=== PATIENT | female | born 1965 | race Caucasian/White ===

== ENCOUNTER → 2016-05-30 | Outpatient (CLI) | payer BC ==
--- NOTE | 2016-05-30 08:56 | XR ---
EXAMINATION TYPE: XR abdomen 1V DATE OF EXAM: 05/30/2016 7:53 AM COMPARISON: 06/14/2013 HISTORY: Follow-up kidney stones TECHNIQUE: Single supine KUB image of the abdomen is obtained. FINDINGS: Persistent calcification in the right hemipelvis measuring 3 mm in diameter. Remaining pelvic calcifi cations are stable from previous exam. Bowel gas pattern nonspecific with no obstruction. Previous surgery in right upper quadrant noted. IMPRESSION: 1. Stable suspected distal right ureteral calculus relative to the outside CT scan of 05/24/2016..
== END | disposition home or self-care (01) ==
LOC: RADXRMAIN 07:30
PROVIDERS: ATTEND Urology
DX: N20.0 Calculus of kidney (principal)
CPT/HCPCS: 74000

== ENCOUNTER → 2016-06-29 | Outpatient (CLI) | payer BC ==
--- NOTE | 2016-06-30 09:51 | XR ---
EXAMINATION TYPE: XR KUB DATE OF EXAM: 06/29/2016 4:22 PM COMPARISON: 05/30/2016 HISTORY: Follow-up kidney stone FINDINGS: The osseous structures are intact. The bowel gas pattern is nonspecific. Overlying bowel content obs cures the renal outline. No obvious renal stones. Previous gallbladder surgery noted. Bone island ove rlying the left femoral neck. Pelvis: Within the pelvis there are multiple nonspecific calcifications. The oval calcification previously rao spected to be ureteral calculus is not seen. There is a larger 6 mm calculus which is somewhat irregu lar in shape which is nonspecific. IMPRESSION: 1. Nonspecific abdomen.
== END | disposition home or self-care (01) ==
LOC: RADXRMAIN 16:05
PROVIDERS: ATTEND Urology
DX: N20.1 Calculus of ureter (principal)
CPT/HCPCS: 74000

== ENCOUNTER → 2016-10-06 | Outpatient (CLI) | payer OTHER ==
--- NOTE | 2016-10-10 07:41 | MM ---
Reason for exam: screening (asymptomatic). Last mammogram was performed 2 years and 1 month ago. History: Benign US left guided VAD of the left breast, August 02, 2010. Physical Findings: A clinical breast exam by your physician is recommended on an annual basis and results should be correlated with mammographic findings. MG Screening Mammo w CAD Bilateral CC and MLO view(s) were taken. Prior study comparison: August 27, 2014, bilateral MG screening mammo w CAD. August 22, 2013, bilateral digital screening mammo w/CAD. August 21, 2012, bilateral digital screening mammo w/CAD. The breast tissue is heterogeneously dense. This may lower the sensitivity of mammography. Previous mammotome biopsy within the left breast. No significant changes when compared with prior studies. ASSESSMENT: Negative, BI-RAD 1 RECOMMENDATION: Routine screening mammogram of both breasts in 1 year.
== END | disposition home or self-care (01) ==
LOC: RADMAMWWP 15:55
PROVIDERS: ATTEND Family Medicine
DX: Z12.31 Encounter for screening mammogram for malignant neoplasm of breast (principal)
CPT/HCPCS: 36415; 80048; 80061

== ENCOUNTER → 2016-10-06 | Outpatient (CLI) | payer OTHER ==
[2016-10-06 13:21] LABS: Anion Gap 11 mmol/L; Blood Urea Nitrogen 15 mg/dL (7-17); Calcium 9.2 mg/dL (8.4-10.2); Carbon Dioxide 27 mmol/L (22-30); Chloride 106 mmol/L (98-107); Cholesterol 225 mg/dL (<200); Glucose 94 mg/dL (74-99); HDL Cholesterol 46 mg/dL (40-60); Non-African American GFR(MDRD) >60 (>60 ml/min/1.73 sqM); Potassium 3.7 mmol/L (3.5-5.1); Sodium 144 mmol/L (137-145); Triglycerides 156 mg/dL (<150)
== END | disposition home or self-care (01) ==
LOC: LABWHC1 11:56
PROVIDERS: ATTEND Family Medicine
DX: Z00.00 Encounter for general adult medical examination without abnormal findings (principal); I10 Essential (primary) hypertension
CPT/HCPCS: 36415; 80048; 80061

== ENCOUNTER → 2016-10-18 | Outpatient (CLI) | payer OTHER | END | disposition home or self-care (01) | LOC: LABWHC1 07:51 | PROVIDERS: ATTEND Urology | DX: Z53.9 Procedure and treatment not carried out, unspecified reason (principal) ==

== ENCOUNTER → 2016-11-13 | Outpatient (CLI) | payer OTHER | END | disposition home or self-care (01) | LOC: LABWHC1 10:33 | PROVIDERS: ATTEND Physician Assistant | DX: N20.0 Calculus of kidney (principal) | CPT/HCPCS: 36415; 83970 ==

== ENCOUNTER → 2016-11-13 | Outpatient (CLI) | payer OTHER ==
--- NOTE | 2016-11-13 15:32 | XR ---
EXAMINATION TYPE: XR abdomen 1V DATE OF EXAM ORDERED: 11/13/2016 HISTORY: N20.0 renal calculus. COMPARISON: Previous study dated 06/29/2016. FINDINGS: There has been a previous cholecystectomy. There is a moderate stool load. There are stable phleboliths within the pelvis. The 6 mm irregular calcification noted previously on the right is no longer evident. No definite calcifications are seen overlying the kidneys. IMPRESSION: 1. NO DEFINITE RENAL CALCULI. 2. MODERATE STOOL LOAD.
== END | disposition home or self-care (01) ==
LOC: RADXRMAIN 09:03
PROVIDERS: ATTEND Urology
DX: N20.0 Calculus of kidney (principal)
CPT/HCPCS: 36415; 74000; 83970

== ENCOUNTER → 2016-11-20 | Outpatient (CLI) | payer OTHER ==
[2016-11-20 07:54] LABS: Basophils % (A) 1 %; CH 31.5; CHCM 34.3; Eosinophils # (A) 0.1 k/uL (0-0.7); Eosinophils % (A) 1 %; HCT 41.4 % (34.0-46.0); HDW 2.63; HGB 14.1 gm/dL (11.4-16.0); Luc # (Auto) 0.15; Luc % (Auto) 2; Lymphocytes # (A) 1.4 k/uL (1.0-4.8); Lymphocytes % (A) 22 %; MCH 31.3 pg (25.0-35.0); Mean Platelet Volume 6.6; Monocytes # (A) 0.4 k/uL (0-1.0); Monocytes % (A) 7 %; Neutrophils # (A) 4.3 k/uL (1.3-7.7); Neutrophils % (A) 68 %; RDW 12.8 % (11.5-15.5); WBC 6.4 k/uL (3.8-10.6); WBC (Perox) 6.44
[2016-11-20 08:26] LABS: Anion Gap 11 mmol/L; Blood Urea Nitrogen 20 mg/dL (7-17); Calcium 8.9 mg/dL (8.4-10.2); Carbon Dioxide 23 mmol/L (22-30); Chloride 109 mmol/L (98-107); Glucose 108 mg/dL (74-99); Non-African American GFR(MDRD) >60 (>60 ml/min/1.73 sqM); Potassium 4.6 mmol/L (3.5-5.1); Sodium 143 mmol/L (137-145)
== END | disposition home or self-care (01) ==
LOC: LABWHC1 07:20
PROVIDERS: ATTEND Physician Assistant
DX: N20.0 Calculus of kidney (principal)
CPT/HCPCS: 36415; 80048; 85025

== ENCOUNTER 2018-07-10 06:42 | Emergency (ER) | payer BC, OTHER ==
[2018-07-10 06:49] VITALS: RESP 18; TEMP 98.1
[2018-07-10] MEDS ORDERED: METOCLOPRAMIDE 5 MG/ML 2 ML VIAL IVP STA (07:25)
[2018-07-10] MEDS ORDERED: SODIUM CHLORIDE 0.9% 1,000 ML IV STA (07:25)
[2018-07-10] MEDS ORDERED: SODIUM CHLORIDE 0.9% 500 ML 500 ML IV STA (07:25)
[2018-07-10] MEDS ORDERED: KETOROLAC 30 MG/ML 1 ML VIAL IVP STA (07:25)
--- NOTE | 2018-07-10 07:30 | ED ---
General Adult HPI - General Chief complaint: Abdominal Pain Stated complaint: Flank pain Time Seen by Provider: 07/10/18 07:07 Source: patient, RN notes reviewed Mode of arrival: ambulatory Limitations: no limitations - History of Present Illness Initial comments: Patient is a pleasant 32-year-old female presenting to the emergency Department with complaints of right flank pain. Onset of symptoms was a couple of days ago. Symptoms have been waxing and waning. Symptoms worsened last night and patient got some improvement with [place]. Discomfort is right posterior flank. Symptoms are similar to previous kidney stones. Patient does have nausea without vomiting. Patient has noticed some hematuria. No dysuria. No constipation or diarrhea. No fevers. - Related Data Home Medications Medication Instructions Recorded Confirmed Carvedilol [Coreg] 25 mg PO BID 07/10/18 07/10/18 Tetracycline 250 Mg 250 mg PO DAILY 07/10/18 07/10/18 Venlafaxine HCl ER [Effexor Xr] 150 mg PO DAILY 07/10/18 07/10/18 Previous Rx's Medication Instructions Recorded HYDROcodone/APAP 5-325MG [[place] 1 tab PO Q4HR PRN #20 tab 05/24/16 5-325] Ketorolac [Toradol] 10 mg PO Q6HR PRN #15 tab 07/10/18 Metoclopramide HCl [Reglan] 10 mg PO Q6HR PRN #15 tablet 07/10/18 Tamsulosin [Flomax] 0.4 mg PO DAILY #14 cap 07/10/18 Allergies Allergy/AdvReac Type Severity Reaction Status Date / Time Sulfa (Sulfonamide Allergy Rash/Hives Verified 07/10/18 07:27 Antibiotics) Review of Systems ROS Statement: Those systems with pertinent positive or pertinent negative responses have been documented in the HPI. ROS Other: All systems not noted in ROS Statement are negative. Constitutional: Denies: fever, chills Eyes: Denies: eye pain ENT: Denies: ear pain Respiratory: Denies: cough Cardiovascular: Denies: chest pain Endocrine: Denies: fatigue Gastrointestinal: Reports: as per HPI, abdominal pain, nausea. Denies: vomiting , diarrhea, constipation Genitourinary: Reports: hematuria. Denies: dysuria Musculoskeletal: Reports: as per HPI Skin: Denies: rash Neurological: Denies: weakness Past Medical History Past Medical History: Hypertension Additional Past Medical History / Comment(s): kidney stones, History of Any Multi-Drug Resistant Organisms: None Reported Past Surgical History: Back Surgery, Section, Cholecystectomy, Tubal Ligation Past Anesthesia/Blood Transfusion Reactions: Postoperative Nausea & Vomiting ( PONV) Past Psychological History: No Psychological Hx Reported Smoking Status: Never smoker Past Alcohol Use History: Occasional Past Drug Use History: None Reported - Past Family History Father Family Medical History: Dementia, Hypertension General Exam Limitations: no limitations General appearance: alert, in no apparent distress Head exam: Present: atraumatic Eye exam: Present: normal appearance, PERRL ENT exam: Present: normal oropharynx Neck exam: Present: normal inspection Respiratory exam: Present: normal lung sounds bilaterally Cardiovascular Exam: Present: regular rate, normal rhythm Expanded Peripheral pulses: 2+: Dorsalis Pedis (R), Dorsalis Pedis (L) GI/Abdominal exam: Present: soft. Absent: distended, tenderness Extremities exam: Present: normal inspection Back exam: Present: normal inspection. Absent: tenderness, CVA tenderness (R) Neurological exam: Present: alert Psychiatric exam: Present: normal affect, normal mood Skin exam: Present: normal color Course Vital Signs 07/10/18 06:46 Temperature 98.1 F Pulse Rate 75 Respiratory 18 Rate Blood Pressure 150/97 O2 Sat by Pulse 95 Oximetry Medical Decision Making - Medical Decision Making Patient reevaluated and resting comfortably in bed. Patient states discomfort is tolerable at this time. Patient and family updated on results. Patient updated on need for follow-up with urology within the week. Harika was contacted from Dr. Black's office will contact the patient for appointment. - Lab Data Result diagrams: 07/10/18 07:28 07/10/18 07:28 Lab Results 07/10/18 07/10/18 07/10/18 Range/Units 07:28 07:28 07:28 WBC 8.4 (3.8-10.6) k/uL RBC 4.68 (3.80-5.40) m/uL Hgb 13.8 (11.4-16.0) gm/dL Hct 40.8 (34.0-46.0) % MCV 87.2 (80.0-100.0) fL MCH 29.5 (25.0-35.0) pg MCHC 33.8 (31.0-37.0) g/dL RDW 13.2 (11.5-15.5) % Plt Count 314 (150-450) k/uL Neutrophils % 79 % Lymphocytes % 13 % Monocytes % 5 % Eosinophils % 1 % Basophils % 0 % Neutrophils # 6.6 (1.3-7.7) k/uL Lymphocytes # 1.1 (1.0-4.8) k/uL Monocytes # 0.4 (0-1.0) k/uL Eosinophils # 0.1 (0-0.7) k/uL Basophils # 0.0 (0-0.2) k/uL Sodium 141 (137-145) mmol/L Potassium 4.1 (3.5-5.1) mmol/L Chloride 106 (98-107) mmol/L Carbon Dioxide 24 (22-30) mmol/L Anion Gap 11 mmol/L BUN 32 H (7-17) mg/dL Creatinine 1.55 H (0.52-1.04) mg/dL Est GFR (CKD-EPI)AfAm 44 (>60 ml/min/1.73 sqM) Est GFR (CKD-EPI)NonAf 39 (>60 ml/min/1.73 sqM) Glucose 133 H (74-99) mg/dL Calcium 10.0 (8.4-10.2) mg/dL Total Bilirubin 0.7 (0.2-1.3) mg/dL AST 25 (14-36) U/L ALT 33 (9-52) U/L Alkaline Phosphatase 92 (38-126) U/L Total Protein 7.7 (6.3-8.2) g/dL Albumin 4.4 (3.5-5.0) g/dL Amylase 141 H (30-110) U/L Lipase 198 (23-300) U/L Urine Color Light Red Urine Appearance Cloudy H (Clear) Urine pH 6.0 (5.0-8.0) Ur Specific [place] 1.017 (1.001-1.035) Urine Protein 1+ H (Negative) Urine Glucose (UA) Negative (Negative) Urine Ketones Negative (Negative) Urine Blood Large H (Negative) Urine Nitrite Negative (Negative) Urine Bilirubin Negative (Negative) Urine Urobilinogen <2.0 (<2.0) mg/dL Ur Leukocyte Esterase Small H (Negative) Urine RBC >182 H (0-5) /hpf Urine WBC 11 H (0-5) /hpf Ur Squamous Epith Cells 1 (0-4) /hpf Calcium Oxalate Crystal Many H (None) /hpf Urine Mucus Rare H (None) /hpf - Radiology Data Radiology results: image reviewed (KUB shows 8 mm calculi right UPJ) Disposition Clinical Impression: Ureterolithiasis Disposition: HOME SELF-CARE Condition: Stable Instructions (If sedation given, give patient instructions): Kidney Stones (ED) Additional Instructions: Please follow-up with urology within the week, preferably before the weekend. Harika from Drs. Black's office will contact you. Please call tomorrow if they do not contact to today. Return for fevers, increased pain, worsening symptoms or any other concerns. Prescriptions: Ketorolac [Toradol] 10 mg PO Q6HR PRN #15 tab PRN Reason: Pain Metoclopramide HCl [Reglan] 10 mg PO Q6HR PRN #15 tablet PRN Reason: Nausea Tamsulosin [Flomax] 0.4 mg PO DAILY #14 cap Is patient prescribed a controlled substance at d/c from ED?: No Referrals: Graciela Spence MD [Primary Care Provider] - 1-2 days Juan Steen MD [STAFF PHYSICIAN] - 1-2 days Time of Disposition: 08:52
[2018-07-10 07:52] LABS: Basophils % (A) 0 %; Eosinophils # (A) 0.1 k/uL (0-0.7); Eosinophils % (A) 1 %; HCT 40.8 % (34.0-46.0); HGB 13.8 gm/dL (11.4-16.0); Lymphocytes # (A) 1.1 k/uL (1.0-4.8); Lymphocytes % (A) 13 %; MCH 29.5 pg (25.0-35.0); MCHC 33.8 g/dL (31.0-37.0); MCV 87.2 fL (80.0-100.0); Mean Platelet Volume 6.5; Monocytes # (A) 0.4 k/uL (0-1.0); Monocytes % (A) 5 %; Neutrophils # (A) 6.6 k/uL (1.3-7.7); Neutrophils % (A) 79 %; Platelet Count 314 k/uL (150-450); RBC 4.68 m/uL (3.80-5.40); RDW 13.2 % (11.5-15.5); WBC 8.4 k/uL (3.8-10.6)
--- NOTE | 2018-07-10 08:02 | XR ---
EXAMINATION TYPE: XR KUB DATE OF EXAM: 07/10/2018 COMPARISON: -17 HISTORY: Pain TECHNIQUE: Single supine KUB image of the abdomen is obtained FINDINGS: Small bowel demonstrates no evidence for dilatation or air fluid levels. Gas and fecal material is seen in non-distended colon. No convincing evidence for pneumoperitoneum. 8 mm calculus in the region of the right UPJ. Correlate clinically. Multiple phleboliths seen within the pelvic basin. No additional calculi noted. Cholecystectomy clips identified. The lung bases are clear. The osseous structures are intact. IMPRESSION: 1. 8 mm calculus in the region of the right UPJ. Correlate clinically.
[2018-07-10 08:13] LABS: Appearance,Urine Cloudy (Clear); Bilirubin,Urine Negative (Negative); Blood,Urine Large (Negative); Calcium Oxalate Crystals,Urine Many /hpf; Color,Urine Light Red; Glucose,Urine (UA) Negative (Negative); Ketones,Urine Negative (Negative); Leukocyte Esterase,Urine Small (Negative); Mucus,Urine Rare /hpf; Nitrite,Urine Negative (Negative); Protein,Urine 1+ (Negative); RBC,Urine >182 /hpf (0-5); Specific Gravity,Urine 1.017 (1.001-1.035); Squamous Epithelial Cell,Urine 1 /hpf (0-4); Urobilinogen,Urine <2.0 mg/dL (<2.0); WBC,Urine 11 /hpf (0-5)
[2018-07-10 08:15] LABS: Albumin 4.4 g/dL (3.5-5.0); Potassium 4.1 mmol/L (3.5-5.1); Total Bilirubin 0.7 mg/dL (0.2-1.3); Total Protein 7.7 g/dL (6.3-8.2)
[2018-07-10 09:23] VITALS: BP 142/80; PULSE 70
== END 2018-07-10 09:21 | disposition home or self-care (01) ==
LOC: EC 06:42
DX: N20.1 Calculus of ureter (principal); I10 Essential (primary) hypertension; Z88.2 Allergy status to sulfonamides; Z79.899 Other long term (current) drug therapy; Z90.49 Acquired absence of other specified parts of digestive tract; Z98.51 Tubal ligation status
CPT/HCPCS: 36415; 80053; 82150; 83690; 85025; 81001; 74018; 99284; 96374; 96375; 96361 ×2; J2765; J1885

== ENCOUNTER → 2018-07-16 | Outpatient (CLI) | payer BC ==
--- NOTE | 2018-07-16 12:30 | XR ---
EXAMINATION TYPE: XR KUB DATE OF EXAM: 07/16/2018 COMPARISON: 07/10/2018 HISTORY: Pain TECHNIQUE: One view abdominal series FINDINGS: The osseous structures are intact. The bowel gas pattern is nonspecific with extensive retained feca l debris throughout the colon. There is a stable 8 mm calculus overlying the region of the right UPJ or proximal ureter. Appears unc hanged in position. Previous cholecystectomy changes are noted. Pelvic calcifications are stable. Likely vascular. Sclero tic lesion overlying the left femoral neck likely related to bone island stable.. IMPRESSION: 1. Stable 8 mm right UPJ calcification.
== END | disposition home or self-care (01) ==
LOC: RADXRMAIN 12:03
PROVIDERS: ATTEND Urology
DX: N28.89 Other specified disorders of kidney and ureter (principal)
CPT/HCPCS: 74018

== ENCOUNTER → 2018-08-06 | Outpatient (CLI) | payer BC ==
[2018-08-06 14:32] LABS: Basophils % (A) 1 %; Eosinophils # (A) 0.1 k/uL (0-0.7); Eosinophils % (A) 1 %; HCT 37.2 % (34.0-46.0); HGB 12.4 gm/dL (11.4-16.0); Lymphocytes # (A) 1.6 k/uL (1.0-4.8); Lymphocytes % (A) 35 %; MCH 29.7 pg (25.0-35.0); MCHC 33.2 g/dL (31.0-37.0); MCV 89.5 fL (80.0-100.0); Mean Platelet Volume 6.1; Monocytes # (A) 0.3 k/uL (0-1.0); Monocytes % (A) 7 %; Neutrophils # (A) 2.5 k/uL (1.3-7.7); Neutrophils % (A) 54 %; Platelet Count 297 k/uL (150-450); RBC 4.16 m/uL (3.80-5.40); RDW 13.2 % (11.5-15.5); WBC 4.5 k/uL (3.8-10.6)
[2018-08-06 14:40] LABS: Appearance,Urine Clear (Clear); Bacteria,Urine Rare /hpf; Bilirubin,Urine Negative (Negative); Blood,Urine Small (Negative); Color,Urine Yellow; Glucose,Urine (UA) Negative (Negative); Hyaline Casts,Urine 5 /lpf (0-2); Ketones,Urine Negative (Negative); Leukocyte Esterase,Urine Moderate (Negative); Mucus,Urine Few /hpf; Nitrite,Urine Negative (Negative); PH, Urine 5.5 (5.0-8.0); Protein,Urine Trace (Negative); RBC,Urine 66 /hpf (0-5); Specific Gravity,Urine 1.012 (1.001-1.035); Squamous Epithelial Cell,Urine 1 /hpf (0-4); Urobilinogen,Urine <2.0 mg/dL (<2.0); WBC,Urine 29 /hpf (0-5)
[2018-08-06 14:48] LABS: Potassium 4.7 mmol/L (3.5-5.1)
== END | disposition home or self-care (01) ==
LOC: LABPAT 13:57
PROVIDERS: ATTEND Urology
DX: Z01.812 Encounter for preprocedural laboratory examination (principal); N20.0 Calculus of kidney
CPT/HCPCS: 36415; 80051; 81001; 82565; 84520; 85025

== ENCOUNTER 2018-08-12 07:06 | Day surgery (SDC) | payer BC ==
--- NOTE | 2018-07-24 07:45 | P.GSHP ---
History of Present Illness H&P Date: 07/24/18 The patient is a 52 y0 female with a history of stones with a painful 8 mm right upj stone who comes for eswl right - Constitutional Constitutional: Denies chills, Denies fever - EENT Eyes: denies blurred vision, denies pain Ears, nose, mouth and throat: Denies headache, Denies sore throat - Cardiovascular Cardiovascular: Denies chest pain, Denies shortness of breath - Respiratory Respiratory: Denies cough, Denies 7 - Gastrointestinal Gastrointestinal: Denies abdominal pain, Denies diarrhea, Denies nausea, Denies vomiting - Genitourinary (Female) Genitourinary: Denies dysuria, Denies hematuria - Genitourinary (Male) Genitourinary: Denies dysuria, Denies hematuria - Musculoskeletal Musculoskeletal: Denies myalgias - Integumentary Integumentary: Denies pruritus, Denies rash - Neurological Neurological: Denies numbness, Denies weakness - Psychiatric Psychiatric: Denies anxiety, Denies depression - Endocrine Endocrine: Denies fatigue, Denies weight change Past Medical History Past Medical History: Hypertension Additional Past Medical History / Comment(s): kidney stones, History of Any Multi-Drug Resistant Organisms: None Reported Past Surgical History: Back Surgery, Section, Cholecystectomy, Tubal Ligation Past Anesthesia/Blood Transfusion Reactions: Postoperative Nausea & Vomiting ( PONV) Past Psychological History: No Psychological Hx Reported Smoking Status: Never smoker Past Alcohol Use History: Occasional Past Drug Use History: None Reported - Past Family History Father Family Medical History: Dementia, Hypertension Medications and Allergies Home Medications Medication Instructions Recorded Confirmed Type HYDROcodone/APAP 5-325MG [[place] 1 tab PO Q4HR PRN #20 tab 05/24/16 07/10/18 Rx 5-325] Carvedilol [Coreg] 25 mg PO BID 07/10/18 07/10/18 History Ketorolac [Toradol] 10 mg PO Q6HR PRN #15 tab 07/10/18 Rx Metoclopramide HCl [Reglan] 10 mg PO Q6HR PRN #15 tablet 07/10/18 Rx Tamsulosin [Flomax] 0.4 mg PO DAILY #14 cap 07/10/18 Rx Tetracycline 250 Mg 250 mg PO DAILY 07/10/18 07/10/18 History Venlafaxine HCl ER [Effexor Xr] 150 mg PO DAILY 07/10/18 07/10/18 History Allergies Allergy/AdvReac Type Severity Reaction Status Date / Time Sulfa (Sulfonamide Allergy Rash/Hives Verified 07/10/18 07:27 Antibiotics) Surgical - Exam - General well developed, well nourished, no distress - Eyes PERRL - ENT no hearing loss - Neck trachea midline - Respiratory normal expansion, normal respiratory effort - Cardiovascular Rhythm: regular - Abdomen Abdomen: soft, non tender - Integumentary no rash, no growths - Neurologic normal coordination, normal sensation - Musculoskeletal normal gait, normal posture - Psychiatric oriented to time, oriented to person, speech is normal, memory intact Results - Imaging Abdominal x-ray: report reviewed, image reviewed Assessment and Plan Assessment: Impression: right upj stone Plan: eswl right
[2018-08-06 10:53] VITALS: BMI 24.3
[~2018-08-12 07:06] MED LIST: HYDROmorphone 0.5 MG/0.5 ML SYRINGE IVP PRN; LACTATED RINGERS 1,000 ML IV SCH; MORPHINE SULFATE 4 MG/ML SYRINGE IV PRN; ONDANSETRON 4 MG/2 ML VIAL IVP PRN; ceFAZolin IN SWFI 2 GM/20 ML SYRINGE IVP ONE
[2018-08-12 07:55] VITALS: TEMP 97.9
[2018-08-12] MEDS ORDERED: LIDOCAINE 1% 20 ML VIAL (10MG/ML) FOR IV START INTRADERMA ONE (07:55)
[2018-08-12] MEDS ORDERED: DEXAMETHASONE SOD PHOS (MDV) 100 MG/10 ML VIAL IVP ONE (08:10)
[2018-08-12] MEDS ORDERED: MIDAZOLAM 2 MG/2 ML VIAL ONE (08:47)
[2018-08-12] MEDS ORDERED: fentaNYL (PF) 50 MCG/ML 2 ML AMP ONE (08:47)
[2018-08-12] MEDS ORDERED: KETAMINE 10 MG/ML 20 ML VIAL ONE (08:47)
[2018-08-12] MEDS ORDERED: PROPOFOL 10 MG/ML 20 ML VIAL IV ONE (08:47)
[2018-08-12] MEDS ORDERED: SODIUM CHLORIDE 0.9% 50 ML with ceFAZolin 2 GM IV ONE ×2 (08:54)
--- NOTE | 2018-08-12 09:34 | P.OP ---
Date of Procedure: 08/12/18 Preoperative Diagnosis: Right UPJ calculus Postoperative Diagnosis: Same Procedure(s) Performed: Right extracorporal shockwave lithotripsy (ESWL) Anesthesia: MAC Surgeon: Pedro Olmedo Estimated Blood Loss (ml): 0 IV fluids (ml): 700 Pathology: none sent Condition: stable Disposition: PACU Indications for Procedure: The patient is a 53-year-old white female with an 8 mm right UPJ calculus. She has elected to undergo ESWL. Operative Findings: No obvious fragmentation. Description of Procedure: The patient was taken to the operating room and placed on the Dornier Compact Delta II lithotripter in the supine position. The calculus was seen on biplanar fluoroscopy. Once the patient was properly positioned and sedated, lithotripsy was performed. The energy level was gradually increased per protocol, to an energy level of 5. After 200 shocks were administered, a 2 minute pause was instituted per protocol. A total of 2500 shocks were given at a rate of 80 shocks per minute. Fluoroscopy was utilized at a minimum to ensure proper positioning and determine the treatment status. The appearance of the calculus failed to change, suggesting fragmentation had not occurred. The patient tolerated the procedure well was taken to the recovery room in stable condition. Instructions were given to strain the urine, and the patient will follow-up within one week.
[2018-08-12 09:39] VITALS: RESP 16
--- NOTE | 2018-08-12 09:40 | XR ---
Abdomen HISTORY: Renal calculus right Frontal view of the abdomen on 2 images Correlation to prior exam 07/16/2017 There is a calcification in the right paraspinal location at approximately the L3 transverse process level as on prior exam measuring approximately 8 mm. Surgical clips present right upper quadrant. Anil g bases are clear. No pneumoperitoneum or bowel obstruction. Multiple calcifications again noted with in the pelvis. IMPRESSION: Findings could represent ureteral calculus rather than nephrolithiasis.
[2018-08-12 09:58] VITALS: BP 102/58; PULSE 65
== END 2018-08-12 10:38 | disposition home or self-care (01) ==
LOC: ORWHC2ENDO 07:06
PROVIDERS: ATTEND Urology
DX: N20.1 Calculus of ureter (principal); I10 Essential (primary) hypertension; Z87.442 Personal history of urinary calculi; Z79.2 Long term (current) use of antibiotics; Z79.891 Long term (current) use of opiate analgesic; Z79.899 Other long term (current) drug therapy; Z88.2 Allergy status to sulfonamides
CPT/HCPCS: 81025; 74018; 50590; J2250; J2405; J3010; J1100; J2704; J0690

== ENCOUNTER 2018-09-02 08:32 | Emergency (ER) | payer BC ==
[2018-09-02 08:44] VITALS: RESP 18
[2018-09-02] MEDS ORDERED: SODIUM CHLORIDE 0.9% 500 ML 500 ML IV STA (09:10)
[2018-09-02] MEDS ORDERED: HYDROmorphone 1 MG/ML 1 ML SYRINGE IVP STA (09:13)
[2018-09-02] MEDS ORDERED: ONDANSETRON 4 MG/2 ML VIAL IVP STA (09:13)
[2018-09-02 09:40] LABS: Appearance,Urine Clear (Clear); Bacteria,Urine Moderate /hpf; Basophils % (A) 0 %; Bilirubin,Urine Negative (Negative); Blood,Urine Moderate (Negative); Color,Urine Yellow; Eosinophils # (A) 0.1 k/uL (0-0.7); Eosinophils % (A) 1 %; Glucose,Urine (UA) Negative (Negative); HCT 31.1 % (34.0-46.0); HGB 10.6 gm/dL (11.4-16.0); Hyaline Casts,Urine 6 /lpf (0-2); Ketones,Urine Negative (Negative); Leukocyte Esterase,Urine Moderate (Negative); Lymphocytes # (A) 1.1 k/uL (1.0-4.8); Lymphocytes % (A) 8 %; MCH 28.8 pg (25.0-35.0); MCV 84.7 fL (80.0-100.0); Mean Platelet Volume 6.5; Monocytes # (A) 1.2 k/uL (0-1.0); Monocytes % (A) 8 %; Mucus,Urine Rare /hpf; Neutrophils # (A) 12.2 k/uL (1.3-7.7); Neutrophils % (A) 83 %; Nitrite,Urine Negative (Negative); Platelet Count 223 k/uL (150-450); Protein,Urine 1+ (Negative); RBC 3.67 m/uL (3.80-5.40); RBC,Urine 91 /hpf (0-5); RDW 13.2 % (11.5-15.5); Specific Gravity,Urine 1.023 (1.001-1.035); Squamous Epithelial Cell,Urine 2 /hpf (0-4); WBC 14.7 k/uL (3.8-10.6); WBC,Urine 25 /hpf (0-5)
[2018-09-02 09:50] LABS: Albumin 3.6 g/dL (3.5-5.0); Calcium 8.8 mg/dL (8.4-10.2); Potassium 3.8 mmol/L (3.5-5.1); Total Bilirubin 1.4 mg/dL (0.2-1.3); Total Protein 6.6 g/dL (6.3-8.2)
--- NOTE | 2018-09-02 09:56 | ED ---
General Adult HPI - General Chief complaint: Abdominal Pain Stated complaint: abd pain Time Seen by Provider: 09/02/18 08:40 Source: patient, RN notes reviewed - History of Present Illness Initial comments: This is a 53-year-old female who presents emergency Department complaining of epigastric and left upper quadrant abdominal pain. Patient states she's had pain in the epigastric region and over to the left upper quadrant since June. Patient states in the process of working up she had some right-sided back pain and they determined that she had a 7 mm stone which they needed to laser out one week ago and then she had a stent removed from that ureter on since then the pain is still in the back but it has slightly improved but the epigastric pain which radiates to her left side continues. Patient states she's been mildly nauseated but has not vomited. Patient denies any diarrhea. Patient states while ago she had states on Sunday she had a fever she called her urologist and I started her on Cipro. Patient denies any chest pain difficulty breathing. Patient denies any headache patient denies any numbness weakness - Related Data Home Medications Medication Instructions Recorded Confirmed Carvedilol [Coreg] 25 mg PO BID 07/10/18 09/02/18 Ciprofloxacin HCl [Cipro] 250 mg PO Q12HR 09/02/18 09/02/18 Venlafaxine HCl ER [Effexor Xr] 75 mg PO DAILY 09/02/18 09/02/18 Previous Rx's Medication Instructions Recorded Alfuzosin HCl [Alfuzosin HCl ER] 10 mg PO DAILY 30 Days #30 08/12/18 tab.er.24h Allergies Allergy/AdvReac Type Severity Reaction Status Date / Time Sulfa (Sulfonamide Allergy Rash/Hives Verified 09/02/18 09:11 Antibiotics) Review of Systems ROS Statement: Those systems with pertinent positive or pertinent negative responses have been documented in the HPI. ROS Other: All systems not noted in ROS Statement are negative. Past Medical History Past Medical History: Hypertension Additional Past Medical History / Comment(s): kidney stones, History of Any Multi-Drug Resistant Organisms: None Reported Past Surgical History: Back Surgery, Section, Cholecystectomy, Tubal Ligation, Uterine Ablation Past Anesthesia/Blood Transfusion Reactions: Postoperative Nausea & Vomiting (PONV) Past Psychological History: No Psychological Hx Reported Smoking Status: Never smoker Past Alcohol Use History: Occasional Past Drug Use History: None Reported - Past Family History Father Family Medical History: Dementia, Hypertension General Exam - General Exam Comments Initial Comments: GENERAL: Patient is well-developed and well-nourished. Patient is nontoxic and well- hydrated and is in mild distress. ENT: Neck is soft and supple. No significant lymphadenopathy is noted. Oropharynx is clear. Moist mucous membranes. Neck has full range of motion without eliciting any pain. EYES: The sclera were anicteric and conjunctiva were pink and moist. Extraocular movements were intact and pupils were equal round and reactive to light. Eyelids were unremarkable. PULMONARY: Unlabored respirations. Good breath sounds bilaterally. No audible rales rhonchi or wheezing was noted. CARDIOVASCULAR: There is a regular rate and rhythm without any murmurs gallops or rubs. ABDOMEN: Mild mid epigastric abdominal pain SKIN: Skin is clear with no lesions or rashes and otherwise unremarkable. NEUROLOGIC: Patient is alert and oriented x3. Cranial nerves II through XII are grossly intact. Motor and sensory are also intact. Normal speech, volume and content. Symmetrical smile. MUSCULOSKELETAL: Normal extremities with adequate strength and full range of motion. No lower extremity swelling or edema. No calf tenderness. LYMPHATICS: No significant lymphadenopathy is noted PSYCHIATRIC: Normal psychiatric evaluation. Course Vital Signs 09/02/18 09/02/18 09/02/18 08:41 09:41 11:40 Temperature 97.7 F 100.3 F H Pulse Rate 96 83 67 Respiratory 18 18 18 Rate Blood Pressure 130/78 115/68 122/74 O2 Sat by Pulse 98 98 98 Oximetry Medical Decision Making - Medical Decision Making I gave the patient a little Dilaudid while in the emergency department to help alleviate her pain. Patient's CAT scan showed a 2 mm right ureteral stone with some mild hydroureter. I spoke with Dr. Hammond at the time the patient did not have a fever but she did spike a fever for 100.2 at that time I gave her 2 g of Rocephin Tylenol and another half Dilaudid. Patient states she has an appointment today at 3:[address] saez when she's been to follow-up with her for the epigastric left upper quadrant abdominal pain. - Lab Data Result diagrams: 09/02/18 09:13 09/02/18 09:13 Lab Results 0409/02/18 09/02/18 Range/Units 09:13 09:13 09:13 WBC 14.7 H (3.8-10.6) k/uL RBC 3.67 L (3.80-5.40) m/uL Hgb 10.6 L (11.4-16.0) gm/dL Hct 31.1 L (34.0-46.0) % MCV 84.7 (80.0-100.0) fL MCH 28.8 (25.0-35.0) pg MCHC 34.0 (31.0-37.0) g/dL RDW 13.2 (11.5-15.5) % Plt Count 223 (150-450) k/uL Neutrophils % 83 % Lymphocytes % 8 % Monocytes % 8 % Eosinophils % 1 % Basophils % 0 % Neutrophils # 12.2 H (1.3-7.7) k/uL Lymphocytes # 1.1 (1.0-4.8) k/uL Monocytes # 1.2 H (0-1.0) k/uL Eosinophils # 0.1 (0-0.7) k/uL Basophils # 0.0 (0-0.2) k/uL Sodium 138 (137-145) mmol/L Potassium 3.8 (3.5-5.1) mmol/L Chloride 105 (98-107) mmol/L Carbon Dioxide 25 (22-30) mmol/L Anion Gap 8 mmol/L BUN 21 H (7-17) mg/dL Creatinine 1.19 H (0.52-1.04) mg/dL Est GFR (CKD-EPI)AfAm 61 (>60 ml/min/1.73 sqM) Est GFR (CKD-EPI)NonAf 53 (>60 ml/min/1.73 sqM) Glucose 142 H (74-99) mg/dL Calcium 8.8 (8.4-10.2) mg/dL Total Bilirubin 1.4 H (0.2-1.3) mg/dL AST 25 (14-36) U/L ALT 39 (9-52) U/L Alkaline Phosphatase 89 (38-126) U/L Total Protein 6.6 (6.3-8.2) g/dL Albumin 3.6 (3.5-5.0) g/dL Amylase 83 (30-110) U/L Lipase 58 (23-300) U/L Urine Color Yellow Urine Appearance Clear (Clear) Urine pH 7.0 (5.0-8.0) Ur Specific [place] 1.023 (1.001-1.035) Urine Protein 1+ H (Negative) Urine Glucose (UA) Negative (Negative) Urine Ketones Negative (Negative) Urine Blood Moderate H (Negative) Urine Nitrite Negative (Negative) Urine Bilirubin Negative (Negative) Urine Urobilinogen 4.0 (<2.0) mg/dL Ur Leukocyte Esterase Moderate H (Negative) Urine RBC 91 H (0-5) /hpf Urine WBC 25 H (0-5) /hpf Urine WBC Clumps Rare H (None) /hpf Ur Squamous Epith Cells 2 (0-4) /hpf Urine Bacteria Moderate H (None) /hpf Hyaline Casts 6 H (0-2) /lpf Urine Mucus Rare H (None) /hpf Disposition Clinical Impression: Kidney stone, Hydroureter Disposition: HOME SELF-CARE Condition: Good Instructions (If sedation given, give patient instructions): Kidney Stones (ED) Additional Instructions: Patient should continue taking her Cipro. Patient should follow-up with tomorrow at 3 PM today Is patient prescribed a controlled substance at d/c from ED?: No Referrals: Jose Francisco Olivares DO [Primary Care Provider] - 1-2 days Time of Disposition: 11:51
--- NOTE | 2018-09-02 11:18 | CT ---
EXAMINATION TYPE: CT abdomen pelvis w con DATE OF EXAM: 09/02/2018 COMPARISON: 04/20/2013 HISTORY: RLQ pain CT DLP: 728.1 mGycm CONTRAST: CT scan of the abdomen and pelvis is performed without Oral Contrast and with IV Contrast, patient in jected with 80 mL of Isovue 300. FINDINGS: LUNG BASES-: No visible nodule. No infiltrate. Small bilateral pleural effusions. LIVER/GB: Cholecystectomy clips. No space occupying hepatic lesion. Biliary tree is of normal nallely gabriela. PANCREAS: No inflammation. No distinct mass. SPLEEN: No splenic enlargement. No lesion seen. ADRENALS: No nodule. No thickening. KIDNEYS/BLADDER: Mild right-sided hydroureteronephrosis secondary to a distal right ureteral 2 mm sara culus. No additional renal calculi seen. Small renal cortical cysts noted. No distinct renal mass. U rinary bladder grossly unremarkable. BOWEL: Normal appendix. Distended mid and distal ileum fluid-filled loops noted measuring up to 2 cm may reflect ileitis. No definite obstructive change identified no definite inflammatory change apprec iated. GENITAL ORGANS: No gross abnormality. LYMPH NODES: No greater than 1cm abdominal or pelvic lymph nodes are appreciated. AORTA: No significant abnormality. OSSEOUS STRUCTURES: No significant abnormality is seen. OTHER: No significant additional abnormality is seen. IMPRESSION: 1. Mild right-sided hydroureteronephrosis secondary to a distal right ureteral 2 mm calculus. 2. Correlate for mild ileal ileitis versus ileus.
[2018-09-02] MEDS ORDERED: cefTRIAXone IN SWFI 1,000 MG/10 ML SYRINGE IVP STA (11:32)
[2018-09-02 11:41] VITALS: BP 122/74; PULSE 67; TEMP 100.3
[2018-09-02] MEDS ORDERED: ACETAMINOPHEN TAB 500 MG TAB PO STA (11:48)
[2018-09-02] MEDS ORDERED: HYDROmorphone 0.5 MG/0.5 ML SYRINGE IVP STA (11:48)
== END 2018-09-02 12:27 | disposition home or self-care (01) ==
LOC: EC 08:32
DX: N20.0 Calculus of kidney (principal); N13.4 Hydroureter; N20.2 Calculus of kidney with calculus of ureter; I10 Essential (primary) hypertension; Z79.899 Other long term (current) drug therapy; Z88.2 Allergy status to sulfonamides
CPT/HCPCS: 36415; 80053; 82150; 83690; 85025; 81001; 74177; 99284; 96365; 96375 ×2; 96376; J2405; J0696; J1170 ×2; Q9967

== ENCOUNTER → 2018-09-11 | Day surgery (SDC) | payer BC ==
[2018-09-09 11:54] VITALS: BMI 25.0
[~2018-09-11] MED LIST changes: -HYDROmorphone 0.5 MG/0.5 ML SYRINGE IVP PRN; +LACTATED RINGERS 1,000 ML IV ONE; -LACTATED RINGERS 1,000 ML IV SCH; +LIDOCAINE 1% 20 ML VIAL (10MG/ML) FOR IV START INTRADERMA ONE; +LIDOCAINE 1% INJ 10MG/ML (20 ML MDV) ONE; -MORPHINE SULFATE 4 MG/ML SYRINGE IV PRN; -ONDANSETRON 4 MG/2 ML VIAL IVP PRN; +PROPOFOL 10 MG/ML 20 ML VIAL IV ONE; -ceFAZolin IN SWFI 2 GM/20 ML SYRINGE IVP ONE
[2018-09-11 09:03] VITALS: RESP 16; TEMP 97.4
--- NOTE | 2018-09-11 09:27 | P.PCN ---
Date of Procedure: 09/11/18 Procedure(s) Performed: BRIEF HISTORY: Patient is a 53-year-old, pleasant, white female, scheduled for an upper endoscopy as part of a epigastric and right upper quadrant abdominal pain for the last 3 months duration. Recently was started on Prilosec 20 mg daily with no help.. PROCEDURE PERFORMED: Esophagogastroduodenoscopy with biopsy. PREOPERATIVE DIAGNOSIS: Epigastric pain of 3 months duration. IV sedation per anesthesia. PROCEDURE: After informed consent was obtained, the patient was brought into the endoscopy unit. IV sedation was administered by Anesthesia under continuous monitoring. Initially the Olympus GIF-140 video endoscope was inserted into the mouth. Esophagus intubated without any difficulty. It was gradually advanced into the stomach and duodenum and carefully examined. The bulb and the second part of the duodenum appeared normal. Passes were done to rule out celiac dis ease. The scope at this time was withdrawn to the stomach, adequately insufflated with air, and upon careful examination, mucosa of the antrum had mild gastritis and biopsies were done from this area. The body, cardia and the fundus appeared normal. The scope was then withdrawn into the esophagus. The GE junction was located at 39 cm from the incisors. The esophagus appeared normal. There were no erosions or ulcerations seen , biopsies were done from the distal esophagus and the patient tolerated the procedure well. IMPRESSION: 1. Mild antral gastritis. 2. Small sliding Hiatal hernia. RECOMMENDATIONS: The findings of this examination were discussed with the patient as well as a family. He was advised to follow with the biopsy results. She will continue with Prilosec 20 mg daily and she'll be seen in the office in 3-4 weeks.
[2018-09-11 09:50] VITALS: BP 119/74; PULSE 75
== END | disposition home or self-care (01) ==
LOC: ORWHC2ENDO 08:24
PROVIDERS: ATTEND Internal Medicine Gastroenterology
DX: K29.50 Unspecified chronic gastritis without bleeding (principal); K44.9 Diaphragmatic hernia without obstruction or gangrene; K21.9 Gastro-esophageal reflux disease without esophagitis; I10 Essential (primary) hypertension; Z87.442 Personal history of urinary calculi; Z90.49 Acquired absence of other specified parts of digestive tract; Z79.899 Other long term (current) drug therapy
CPT/HCPCS: 81025; 88305; 43239; J2001; J2704

== ENCOUNTER → 2018-09-12 | Outpatient (CLI) | payer BC ==
--- NOTE | 2018-09-13 09:31 | MM ---
Reason for exam: screening (asymptomatic). Last mammogram was performed 1 year and 11 months ago. History: Benign US left guided VAD of the left breast, August 02, 2010. Physical Findings: A clinical breast exam by your physician is recommended on an annual basis and results should be correlated with mammographic findings. MG 3D Screening Mammo W/Cad Bilateral CC and MLO view(s) were taken. Prior study comparison: October 06, 2016, bilateral MG screening mammo w CAD. August 27, 2014, bilateral MG screening mammo w CAD. The breast tissue is heterogeneously dense. This may lower the sensitivity of mammography. Left biopsy marker. No significant changes when compared with prior studies. ASSESSMENT: Negative, BI-RAD 1 RECOMMENDATION: Routine screening mammogram of both breasts in 1 year.
== END | disposition home or self-care (01) ==
LOC: RADMAMWWP 15:05
PROVIDERS: ATTEND Family Medicine
DX: Z12.31 Encounter for screening mammogram for malignant neoplasm of breast (principal)
CPT/HCPCS: 77063; 77067

== ENCOUNTER → 2018-10-30 | Day surgery (SDC) | payer BC ==
[2018-10-28 13:50] VITALS: BMI 25.8
[~2018-10-30] MED LIST changes: +DEXAMETHASONE SOD PHOSPHATE 10 MG/ML 1 ML VIAL IV ONE; +HYDROmorphone 0.5 MG/0.5 ML SYRINGE IVP PRN; -LACTATED RINGERS 1,000 ML IV ONE; +LACTATED RINGERS 1,000 ML IV SCH; -LIDOCAINE 1% 20 ML VIAL (10MG/ML) FOR IV START INTRADERMA ONE; +LIDOCAINE 1% 20 ML VIAL (10MG/ML) FOR IV START INTRADERMA PRN; -LIDOCAINE 1% INJ 10MG/ML (20 ML MDV) ONE; +ONDANSETRON 4 MG/2 ML VIAL IVP ONE; +SCOPOLAMINE 1.5MG/72HR PATCH TRANSDERM ONE
[2018-10-30 08:31] VITALS: RESP 16; TEMP 97.8
--- NOTE | 2018-10-30 09:37 | P.PCN ---
Date of Procedure: 10/30/18 Procedure(s) Performed: BRIEF HISTORY: Patient is a 53-year-old pleasant white female, scheduled for an elective colonoscopy as a part of the left upper quadrant abdominal pain for the last few months duration. She denies any significant change in bowel habits. PROCEDURE PERFORMED: Colonoscopy with biopsy. PREOPERATIVE DIAGNOSIS: Left-sided abdominal pain. IV sedation per Anesthesia. PROCEDURE: After informed consent was obtained, the patient, was brought into the endoscopy unit. IV sedation was administered by Anesthesia under continuous monitoring. Digital rectal examination was normal. Initially the Olympus CF-160 flexible video colonoscope was then inserted in the rectum, gradually advanced into the cecum without any difficulty. Careful examination was performed as the scope was gradually being withdrawn. Ileocecal valve and the appendiceal orifice were visualized and appeared normal. Prep was excellent. Mucosa of the cecum, appeared normal. In the ascending colon there was a 3 mm sessile polyp that was removed by cold biopsy. Rest of the ascending colon, transverse colon, d escending colon, sigmoid colon, and rectum appeared normal. There was another 3 mm sessile polyp in the proximal rectum that was removed by cold biopsy Retroflexion was performed in the rectum and no lesions were seen. The patient tolerated the procedure well. IMPRESSION: 3 mm sessile ascending colon polyp status post removal by cold biopsy 3 mm sessile rectal polyp status post removal by cold biopsy RECOMMENDATIONS: Findings of this examination were discussed with the patient as well as a family. She was advised to follow with the biopsy results. If the biopsy shows adenoma, she can have a repeat colonoscopy in 5 years.
[2018-10-30 09:39] VITALS: BP 128/77; PULSE 64
== END ==
LOC: ORWHC2ENDO 08:11
PROVIDERS: ATTEND Internal Medicine Gastroenterology
DX: R10.12 Left upper quadrant pain (principal); K63.5 Polyp of colon; K62.1 Rectal polyp; I10 Essential (primary) hypertension; Z90.49 Acquired absence of other specified parts of digestive tract; Z98.51 Tubal ligation status; Z79.899 Other long term (current) drug therapy; Z88.2 Allergy status to sulfonamides
CPT/HCPCS: 45380; 81025; 88305; 88342; 88341; J2704

== ENCOUNTER → 2018-12-04 | Outpatient (CLI) | payer BC ==
--- NOTE | 2018-12-04 13:54 | XR ---
EXAMINATION TYPE: XR cervical spine comp DATE OF EXAM: 12/04/2018 COMPARISON: NONE HISTORY: Pain TECHNIQUE: Four views are submitted. FINDINGS: The odontoid is intact. There are no compression deformities. The prevertebral soft tissue structur es are within normal limits. Biapical thickening of the lungs. There is foraminal encroachment C5-C6 greater on the right. Degenerative disc disease C5-6 and C6-C7. IMPRESSION: 1. Degenerative disc disease C5-6 and C6-C7 with suspected foraminal encroachment at C5-C6. Recommend follow-up MRI.
== END | disposition home or self-care (01) ==
LOC: RADXRMAIN 13:31
PROVIDERS: ATTEND Family Medicine
DX: M50.322 Other cervical disc degeneration at C5-C6 level (principal)
CPT/HCPCS: 72050

== ENCOUNTER → 2019-02-17 | Outpatient (CLI) | payer BC ==
--- NOTE | 2019-02-17 17:53 | XR ---
EXAMINATION TYPE: XR chest 2V DATE OF EXAM: 02/17/2019 COMPARISON: NONE HISTORY: Hypertension TECHNIQUE: Frontal and lateral views of the chest are obtained. FINDINGS: Heart and mediastinum are normal. Lungs are clear. Diaphragm is normal. Bony thorax is int act. IMPRESSION: No active cardiopulmonary disease. Normal heart.
== END | disposition home or self-care (01) ==
LOC: LABWHC1 16:43
PROVIDERS: ATTEND Physician Assistant
DX: I10 Essential (primary) hypertension (principal)
CPT/HCPCS: 36415; 71046; 82088; 82533; 83880; 84244; 84439; 84443

== ENCOUNTER → 2019-02-26 | Outpatient (CLI) | payer BC ==
--- NOTE | 2019-02-27 00:05 | MR ---
EXAMINATION TYPE: MR cervical spine wo con DATE OF EXAM: 02/26/2019 COMPARISON: None HISTORY: Cervicalgia, worsening pressure in neck and going up head for 4 months TECHNIQUE: Multiplanar, multisequence images of the cervical spine were acquired. Cervical vertebra have normal alignment. There is no significant disc space narrowing. There is sligh t decreased signal in the cervical discs on the T2 images. There are small posterior disc bulges at C 5-6 C6-7 without compromise of the spinal canal. Brainstem is intact. Cervical spinal cord shows no e vidence of edema. There is no cervical paraspinal mass. Posterior elements are intact. There is no fr acture. IMPRESSION: Mild degenerative disc changes in the lower cervical spine. No fracture. Spinal canal is 8 mm at C5-6 which is the narrowest point. No spinal stenosis.
== END | disposition home or self-care (01) ==
LOC: RADMRIMAIN 20:04
PROVIDERS: ATTEND Physician Assistant
DX: M50.320 Other cervical disc degeneration, mid-cervical region, unspecified level (principal)
CPT/HCPCS: 72141

== ENCOUNTER → 2019-03-05 | Outpatient (CLI) | payer BC ==
--- NOTE | 2019-03-05 12:04 | US ---
EXAMINATION TYPE: US renal artery duplex complete DATE OF EXAM: 03/05/2019 COMPARISON: NONE CLINICAL HISTORY: I10 Essential Hypertension. pre diabetic and uncontrolled HTN per patient. MEASUREMENTS: RENAL SIZE: Rt Kidney: 9.7 x 5.3 x 3.9cm Lt Kidney: 9.6 x 5.7 x 4.9cm RESISTANCE INDEX Right: 0.77 inferiorly Left: 0.69 mid RA/AO RATIO (< 3.5 ) Right: 1.7 Left: 1.7 RA VELOCITY ( < 180 cm/s) Right: 110.9 distally Left: 106.0 mid Aorta: appearance and size is wnl. Bilateral renal artery PSV is wnl bilaterally. RA/AO ratios are wn l. Color Flow is well seen to bilateral renal periphery. IMPRESSION: No convincing sonographic evidence of renal arterial stenosis although the right renal re sistive index is mildly elevated. Other values are within normal limits.
== END | disposition home or self-care (01) ==
LOC: RADUSWWP 08:54
PROVIDERS: ATTEND Family Medicine
DX: N28.9 Disorder of kidney and ureter, unspecified (principal)
CPT/HCPCS: 93975

== ENCOUNTER → 2019-04-11 | Outpatient (CLI) | payer BC | LOC: LABWHC1 10:51 | PROVIDERS: ATTEND Internal Medicine Endocrinology, Diabetes & Metabolism | DX: E27.40 Unspecified adrenocortical insufficiency (principal) | CPT/HCPCS: 36415; 82024; 82533 ==

== ENCOUNTER → 2019-06-02 | Outpatient (CLI) | payer BC ==
--- NOTE | 2019-06-02 13:04 | XR ---
EXAMINATION TYPE: XR KUB DATE OF EXAM: 06/02/2019 COMPARISON: 08/12/2018 HISTORY: Renal calculus TECHNIQUE: One view abdominal series FINDINGS: The osseous structures are intact. The bowel gas pattern is nonspecific. Postcholecystectomy changes are noted. Bowel content limits assessment the renal outlines with no definitive calcification ident ified. Calcifications in the pelvis are stable and felt to BE most likely vascular. Calcification is seen in the right paraspinal region is no longer identified. IMPRESSION: 1. Nonspecific abdomen. Right paraspinal calcification no longer identified.
== END | disposition home or self-care (01) ==
LOC: RADXRMAIN 12:14
PROVIDERS: ATTEND Urology
DX: N20.0 Calculus of kidney (principal)
CPT/HCPCS: 74018

== ENCOUNTER → 2019-07-16 | Outpatient (CLI) | payer BC | END | disposition home or self-care (01) | LOC: LABWHC1 16:47 | PROVIDERS: ATTEND Internal Medicine Endocrinology, Diabetes & Metabolism | DX: E27.40 Unspecified adrenocortical insufficiency (principal) | CPT/HCPCS: 36415; 82024; 82533 ==

== ENCOUNTER → 2019-07-24 | Outpatient (CLI) | payer BC ==
--- NOTE | 2019-07-24 08:24 | CT ---
EXAMINATION TYPE: CT sinus wo con DATE OF EXAM: 07/24/2019 COMPARISON: CT facial bones May 09, 2012. HISTORY: Chronic sinusitis per order. Headaches with sinus infection and change in vision for [address] DLP: 581.4 mGycm. Automated Exposure Control for Dose Reduction was Utilized. TECHNIQUE: CT scan of the sinuses is performed without contrast, axial images are obtained, coronal r eformatted images are also reviewed. FINDINGS: Mild mucosal thickening involving inferior aspect bilateral maxillary sinuses greater on th e left is now present. There is moderate eccentric mucosal thickening anteriorly in the right frontal sinus. Remainder paranasal sinuses are clear without suspicious opacification or air-fluid levels on current study The ostiomeatal complex is patent bilaterally seen best coronal image 17. There is ant ral mucosal thickening bilaterally greater on the left without occlusion, some left-sided narrowing i s noted Visualized portion of mastoid air cells show no abnormal opacification. The globes are intact bilate rally. Visualized brain parenchyma within normal limits. IMPRESSION: Chronic paranasal sinus disease as detailed above. No acute sinusitis currently.
== END | disposition home or self-care (01) ==
LOC: RADCTMAIN 06:53
PROVIDERS: ATTEND Otolaryngology
DX: J32.0 Chronic maxillary sinusitis (principal); J32.1 Chronic frontal sinusitis
CPT/HCPCS: 70486

== ENCOUNTER → 2019-08-05 | Outpatient (CLI) | payer BC ==
--- NOTE | 2019-08-05 09:35 | CT ---
EXAMINATION TYPE: CT abdomen pelvis wo con DATE OF EXAM: 08/05/2019 COMPARISON: 09/02/2018 HISTORY: Ureteral stone. History nephrolithiasis. Left flank pain. CT DLP: 722 mGycm Automated exposure control for dose reduction was used. TECHNIQUE: Helical acquisition of images was performed from the lung bases through the pelvis. FINDINGS: LUNG BASES: Linear left basilar pleural-parenchymal scarring. LIVER/GB: There is a too small to accurately characterize segment 8 hepatic lesion measuring 3 mm on image 10. Remainder the unenhanced liver is grossly unremarkable. Gallbladder surgically absent. PANCREAS: No significant abnormality is seen. SPLEEN: There is a small splenule adjacent to the quechan spleen. ADRENALS: 1.3 cm left adrenal gland nodule is low-density within average Hounsfield unit of 14.8 antonio rufino this does not definitively meet criteria for benign adenoma and requires further evaluation for d efinitive characterization. This was seen on the exam of 09/02/2018 and is unchanged in size. Right adr enal gland is unremarkable. KIDNEYS: Right lower pole renal calculus measures 4 mm and is nonobstructing. No hydronephrosis of ei ther kidney. There are multiple distal left ureteral calculi measuring a total distance of 1.4 cm and measuring up to 4 mm in thickness. These are new from the prior exam. No calculi in the urinary blad riaz. FREE AIR: No free air is visualized ADENOPATHY: No greater than 1 cm short axis lymph node in the abdomen or pelvis. OSSEOUS STRUCTURES: Sclerotic foci in the pelvis are likely related to bone islands as these are not ed on the prior. Mild degenerative change of the lumbosacral junction. BOWEL: There is swirling of the central mesenteric vasculature with branches of the superior mesente cecilio vein surrounding the superior mesenteric artery as well as swirling of mesenteric fat and proxima l jejunum seen from series 3 image 48 through 64. There is also haziness of the central mesenteric fa t. Internal hernia is possible although no dilated bowel is seen at this time. OTHER: Trace free fluid in the pelvis is likely physiologic in nature. IMPRESSION: 1. MULTIPLE LEFT DISTAL URETERAL CALCULI ORIENTED IN A LINEAR FASHION MEASURE A TOTAL DISTANCE OF 1.4 CM IN THICKNESS AT 4 MM HOWEVER DO NOT PERSIST ON THE LEFT AND ARE INCOMPLETELY OBSTRUCTING. 2. THERE IS SWIRLING OF THE CENTRAL MESENTERIC VASCULATURE AND CENTRAL MESENTERY WITH SOME MINIMAL FA T STRANDING. SWIRLING OF LOOPS OF NONDILATED SMALL BOWEL ARE ALSO SEEN AND INTERNAL HERNIA REMAINS A POSSIBILITY. NO DILATED BOWEL AT THIS TIME. 3. INDETERMINATE LEFT ADRENAL GLAND LESION MEASURES 1.3 CM AND REQUIRES FURTHER EVALUATION WITH EITHE R THREE-PHASE ENHANCED CT OR ABDOMEN FOR FURTHER CHARACTERIZATION.
== END | disposition home or self-care (01) ==
LOC: RADCTMAIN 08:39
PROVIDERS: ATTEND Urology
DX: N20.1 Calculus of ureter (principal); R93.3 Abnormal findings on diagnostic imaging of other parts of digestive tract; Z88.2 Allergy status to sulfonamides
CPT/HCPCS: 74176

== ENCOUNTER → 2019-08-12 | Outpatient (CLI) | payer BC ==
--- NOTE | 2019-08-12 10:08 | CT ---
EXAMINATION TYPE: CT abdomen w con DATE OF EXAM: 08/12/2019 HISTORY: Abdominal mass CT DLP: 1117 mGycm Automated Exposure Control for Dose Reduction was Utilized. CONTRAST: CT scan of the abdomen is performed without and with IV Contrast, patient injected with 100 ml mL of Isovue 300. COMPARISON: 08/05/2019 FINDINGS: LUNG BASES: Redemonstration of linear left basilar pleural parenchymal scarring. LIVER/GB: Mild degree hepatic steatosis unenhanced images 1 splenic enhancement as compared to the he patic enhancement. Gallbladder surgically absent. The previously seen 2 small to accurately character ize hepatic lesion in segment 8 is not well visualized on today's exam and may have simply represente d heterogeneity of the hepatic parenchyma or periportal edema. PANCREAS: No significant abnormality is seen. SPLEEN: Small splenule is redemonstrated adjacent to the [place] spleen. ADRENALS: The 1.3 cm left adrenal gland nodule has a precontrast Hounsfield unit of 13, postcontrast Hounsfield unit of 58 and delayed Hounsfield unit of 23. The calculated absolute washout measures 77. 8% relative washout is 60.3%. Both absolute and relative washout are consistent with a benign adenoma . KIDNEYS: Unenhanced images demonstrate a nonobstructing right inferior pole renal calculus measuring 4 mm. There are few subcentimeter probable cortical left renal cysts that are too small to accurately characterize. No hydronephrosis of either kidney. BOWEL: Again there remains swelling of the central mesenteric vasculature with branches of the SMV or iented to the left of the SMA branches. Haziness of the central mesenteric fat is again seen. The bow el remains nondilated at this time. LYMPH NODES: No greater than 1cm abdominal lymph nodes are appreciated. OSSEOUS STRUCTURES: Degenerative changes at the lumbosacral junction. IMPRESSION: 1. Enhancement and washout features of the left 1.3 cm adrenal gland lesion are consistent with a mono ign adenoma. 2. Mild degree hepatic steatosis. 3. Redemonstration of swelling of the central mesenteric vasculature that can be seen in internal her erum or mild degree of malrotation. Again no dilated bowel is seen at this time.
== END | disposition home or self-care (01) ==
LOC: RADCTMAIN 08:13
PROVIDERS: ATTEND Family Medicine
DX: K76.0 Fatty (change of) liver, not elsewhere classified (principal); E27.8 Other specified disorders of adrenal gland; R22.2 Localized swelling, mass and lump, trunk
CPT/HCPCS: 74160; Q9967

== ENCOUNTER → 2019-12-12 | Outpatient (CLI) | payer BC | END | disposition home or self-care (01) | LOC: LABWHC1 14:15 | PROVIDERS: ATTEND Internal Medicine Endocrinology, Diabetes & Metabolism | DX: E27.40 Unspecified adrenocortical insufficiency (principal) | CPT/HCPCS: 36415; 82024; 82533 ==

== ENCOUNTER → 2019-12-18 | Outpatient (CLI) | payer BC | END | disposition home or self-care (01) | LOC: LABWHC1 13:06 | PROVIDERS: ATTEND Family Medicine | DX: Z20.828 Contact with and (suspected) exposure to other viral communicable diseases (principal) | CPT/HCPCS: U0003; C9803 ==

== ENCOUNTER → 2020-02-18 | Outpatient (CLI) | payer BC ==
--- NOTE | 2020-02-19 11:20 | MM ---
Reason for exam: screening (asymptomatic). Last mammogram was performed 1 year and 5 months ago. History: Benign US left guided VAD of the left breast, August 02, 2010. Physical Findings: A clinical breast exam by your physician is recommended on an annual basis and results should be correlated with mammographic findings. MG 3D Screening Mammo W/Cad Bilateral CC and MLO view(s) were taken. Prior study comparison: September 12, 2018, bilateral MG 3d screening mammo w/cad. October 06, 2016, bilateral MG screening mammo w CAD. The breast tissue is heterogeneously dense. This may lower the sensitivity of mammography. There are benign appearing round calcifications bilaterally. Previous mammotome biopsy in the left breast. There is no discrete abnormality. ASSESSMENT: Benign, BI-RAD 2 RECOMMENDATION: Routine screening mammogram of both breasts in 1 year.
== END | disposition home or self-care (01) ==
LOC: RADMAMWWP 08:35
PROVIDERS: ATTEND Family Medicine
DX: Z12.31 Encounter for screening mammogram for malignant neoplasm of breast (principal)
CPT/HCPCS: 77063; 77067

== ENCOUNTER → 2020-10-30 | Outpatient (CLI) | payer BC ==
--- NOTE | 2020-10-30 14:45 | XR ---
EXAMINATION TYPE: XR KUB DATE OF EXAM: 10/30/2020 COMPARISON: 06/02/2019 HISTORY: Pain TECHNIQUE: One view abdominal series FINDINGS: The osseous structures are intact. The bowel gas pattern is nonspecific. Bowel gas pattern is nonspecific and there is no obstruction. Surgical clips are seen in the gallblad riaz fossa. Assessment the right kidney is limited due to overlying bowel content however suspicion fo r at least 3 tiny punctate 1 to 2 mm calculus. Additionally suspicion for 3 punctate calculi overlyin g the upper pole the left kidney. Hypertrophic change of the acetabulum to be associated with femoral acetabular impingement and there is a sclerotic density involving the left femoral neck likely related to bone island. Calcifications in the pelvis are stable from 2020 and therefore likely vascular. IMPRESSION: 1. Suspect punctate multiple bilateral renal calculi all measuring less than 5 mm.
== END | disposition home or self-care (01) ==
LOC: RADXRMAIN 12:26
PROVIDERS: ATTEND Urology
DX: R10.9 Unspecified abdominal pain (principal)
CPT/HCPCS: 74018

== ENCOUNTER → 2021-11-09 | Outpatient (CLI) | payer BC ==
--- NOTE | 2021-11-10 11:42 | MM ---
Reason for Exam: Screening (asymptomatic). Last mammogram was performed 1 year(s) and 9 month(s) ago. Patient History: Menarche at age 14. First Full-Term at age 28. Postmenopausal. 08/02/2010, Benign Core Biopsy on the left side. Risk Values: Lizzie 5 year model risk: 1.6%. NCI Lifetime model risk: 10.7%. Prior Study Comparison: 10/06/2016 Bilateral Screening Mammogram, [facility]. 09/12/2018 Bilateral Screening Mammogram, [facility]. 02/18/2020 Bilateral Screening Mammogram, [facility]. Tissue Density: The breast tissue is heterogeneously dense. This may lower the sensitivity of mammography. Findings: Analyzed By CAD. Biopsy clip left breast redemonstrated. There is no suspicious group of microcalcifications or new suspicious mass in either breast. Overall Assessment: Benign, BI-RAD 2 Management: Screening Mammogram of both breasts in 1 year. A clinical breast exam by your physician is recommended on an annual basis and results should be correlated with mammographic findings. Electronically signed and approved by: Kirill Cloud M.D.
== END | disposition home or self-care (01) ==
LOC: RADMAMWWP 10:17
PROVIDERS: ATTEND Family Medicine
DX: Z12.31 Encounter for screening mammogram for malignant neoplasm of breast (principal); Z78.0 Asymptomatic menopausal state
CPT/HCPCS: 77067

== ENCOUNTER → 2021-12-13 | Outpatient (CLI) | payer BC ==
--- NOTE | 2021-12-13 07:42 | MR ---
EXAMINATION TYPE: MR sacroiliac joints wo con DATE OF EXAM: 12/13/2021 COMPARISON: Correlation CT abdomen/pelvis 08/05/2019 HISTORY: 56-year-old female M54.9, Ankylosing spondylitis, pain TECHNIQUE: Multiplanar, multisequence images of the sacroiliac joints were obtained without IV contra st. FINDINGS: The initial survey sequence shows moderate to advanced degenerative disc disease at L5-S1 with latera l sided disc osteophyte complexes which may abut the extraforaminal L5 nerve roots on either side. Bilateral sacroiliac joints are intact. There may be mild degenerative subarticular sclerosis on both sides but no significant subarticular edema are discrete erosive change identified. The sacrum remains intact. Small intramural fibroids noted within the anteverted uterus A 9 mm nodule within the right adnexa shows fat signal intensity and is unchanged from 08/05/2019 comp atible with a benign etiology. Heterogeneous marrow signal is present throughout, likely red marrow hyperplasia. IMPRESSION: There may be mild degenerative subarticular sclerosis at both SI joints. However, there is no edema o r discrete subarticular erosions to indicate an inflammatory sacroiliitis by MRI at this time.
== END | disposition home or self-care (01) ==
LOC: RADMRIMAIN 06:02
PROVIDERS: ATTEND Internal Medicine Rheumatology
DX: M54.9 Dorsalgia, unspecified (principal)
CPT/HCPCS: 72195

== ENCOUNTER → 2022-04-17 | Outpatient (CLI) | payer BC ==
--- NOTE | 2022-04-18 09:14 | XR ---
EXAMINATION TYPE: XR KUB DATE OF EXAM: 04/17/2022 COMPARISON: 10/30/2020 HISTORY: Pain TECHNIQUE: One view abdominal series FINDINGS: The osseous structures are intact. The bowel gas pattern is nonspecific. Right renal outline is obscured by overlying bowel content. There does appear to be at least 4 puncta te less than 5 mm right renal calculi. Suspect there are punctate less than 5 mm left renal calculi. Surgical clips in the gallbladder fossa. Pelvic indications pelvic calcifications are stable and ther efore likely vascular. Mild hypertrophic changes of the spine. IMPRESSION: 1. Punctate 5 mm or less bilateral renal calculi 2. Correlate for constipation
== END | disposition home or self-care (01) ==
LOC: RADXRMAIN 15:31
PROVIDERS: ATTEND Urology
DX: N20.0 Calculus of kidney (principal)
CPT/HCPCS: 74018

== ENCOUNTER → 2022-08-21 | Outpatient (CLI) | payer BC ==
[2022-08-21 22:24] LABS: Appearance,Urine Clear (Clear); Basophils # (A) 0.02 X 10*3/uL (0.00-0.10); Basophils % (A) 0.4 %; Bilirubin,Urine Negative (Negative); Blood,Urine Negative (Negative); Color,Urine Yellow (Yellow); Eosinophils # (A) 0.04 X 10*3/uL (0.04-0.35); Eosinophils % (A) 0.8 %; HCT 39.9 % (37.2-46.3); HGB 13.1 g/dL (12.0-15.0); Immature Grans, Automated 0.2 %; Ketones,Urine Negative (Negative); Lymphocytes # (A) 1.51 X 10*3/uL (0.90-5.00); Lymphocytes % (A) 30.1 %; MCH 29.9 pg (27.0-32.0); MCHC 32.8 g/dL (32.0-37.0); MCV 91.1 fL (80.0-97.0); Mean Platelet Volume 9.7 fL (9.5-12.2); NRBC Per 100 WBC 0 /100 WBCS (0.0-0.0); Neutrophils # (A) 2.93 X 10*3/uL (1.80-7.70); Neutrophils % (A) 58.5 %; Nitrite,Urine Negative (Negative); PH, Urine 7.5 (5.0-8.0); Platelet Count 236 X 10*3/uL (140-440); RBC 4.38 X 10*6/uL (4.10-5.20); RDW 12.3 % (11.5-14.5); Specific Gravity,Urine 1.012 (1.001-1.030); Urobilinogen,Urine 0.2 (0.2,1.0); WBC 5.01 X 10*3/uL (4.50-10.00)
[2022-08-21 23:28] LABS: African American GFR (CKD) 78.5 (60.0-200.0); Anion Gap 9.2 mmol/L (10.00-18.00); BUN/Creat Ratio 22.53 Ratio (12.00-20.00); Blood Urea Nitrogen 21.2 mg/dL (9.0-27.0); Calcium 9.8 mg/dL (8.7-10.3); Carbon Dioxide 31.6 mmol/L (20.0-27.5); Non-African American GFR(CKD) 67.7 (60.0-200.0); Potassium 3.7 mmol/L (3.5-5.5)
== END | disposition home or self-care (01) ==
LOC: LABPAT 13:37
PROVIDERS: ATTEND Urology
DX: Z01.812 Encounter for preprocedural laboratory examination (principal); N20.0 Calculus of kidney; R31.29 Other microscopic hematuria
CPT/HCPCS: 80048; 81003; 85025

== ENCOUNTER → 2022-08-22 | Day surgery (SDC) | payer BC ==
[~2022-08-22] MED LIST changes: -DEXAMETHASONE SOD PHOSPHATE 10 MG/ML 1 ML VIAL IV ONE; +DEXAMETHASONE SOD PHOSPHATE 4 MG/ML 1 ML VIAL IVP ONE; +HYDROmorphone (PF) 1 MG/ML ONE; +HYDROmorphone 0.5 MG/0.5 ML SYRINGE IVP ONE; -HYDROmorphone 0.5 MG/0.5 ML SYRINGE IVP PRN; +IOPAMIDOL-370 100ML BTL MISCELLANE ONE; +KETOROLAC 15 MG/ML 1 ML VIAL IVP ONE; +LACTATED RINGERS 1,000 ML IV ONE; -LACTATED RINGERS 1,000 ML IV SCH; -LIDOCAINE 1% 20 ML VIAL (10MG/ML) FOR IV START INTRADERMA PRN; +LIDOCAINE 2% INJ 20 MG/ML (2 ML VIAL) ONE; +MIDAZOLAM 2 MG/2 ML VIAL IVP ONE; +MIDAZOLAM 2 MG/2 ML VIAL ONE; +ONDANSETRON 4 MG/2 ML VIAL ONE; -SCOPOLAMINE 1.5MG/72HR PATCH TRANSDERM ONE; +fentaNYL (PF) 50 MCG/ML 2 ML AMP ONE
--- NOTE | 2022-08-22 06:39 | P.GSHP ---
History of Present Illness H&P Date: 08/22/22 57 yo female with a history of stones presents with bilateral renal stones, small with intermittent back pain. She had a ct scan recently at [facility] showing 3 small stones right up to 5mm and a collection of stones left 7mm total aggregate. She is going to [place] in 2 weeks and doesnt want to take the chance of stone passage while away SHe comes for bilateral ureteroscopy with laser lithotripsy, possible stent. - Constitutional Constitutional: Denies chills, Denies fever - EENT Eyes: denies blurred vision, denies pain Ears, nose, mouth and throat: Denies headache, Denies sore throat - Cardiovascular Cardiovascular: Denies chest pain, Denies shortness of breath - Respiratory Respiratory: Denies cough, Denies 7 - Gastrointestinal Gastrointestinal: Denies abdominal pain, Denies diarrhea, Denies nausea, Denies vomiting - Genitourinary (Female) Genitourinary: Denies dysuria, Denies hematuria - Genitourinary (Male) Genitourinary: Denies dysuria, Denies hematuria - Musculoskeletal Musculoskeletal: Denies myalgias - Integumentary Integumentary: Denies pruritus, Denies rash - Neurological Neurological: Denies numbness, Denies weakness - Psychiatric Psychiatric: Denies anxiety, Denies depression - Endocrine Endocrine: Denies fatigue, Denies weight change Past Medical History Past Medical History: Diabetes Mellitus, GERD/Reflux, Hypertension, Osteoarthritis (OA), Renal Disease Additional Past Medical History / Comment(s): kidney stones, abd. pain along ribs since jun. "prediabetic" diet controlled History of Any Multi-Drug Resistant Organisms: None Reported Past Surgical History: Back Surgery, Section, Cholecystectomy, Tubal Ligation, Uterine Ablation Additional Past Surgical History / Comment(s): cystoscopy/lithotripsies, C/Sx2, exploratory laparotomy Past Anesthesia/Blood Transfusion Reactions: Family History of Problems w/ Anesthesia, Postoperative Nausea & Vomiting (PONV) Additional Past Anesthesia/Blood Transfusion Reaction / Comment(s): "dad bottoms out with his blood pressure while he is under anesthesetic" Smoking Status: Never smoker - Past Family History Father Family Medical History: Dementia, Hypertension Medications and Allergies Home Medications Medication Instructions Recorded Confirmed Type Acetaminophen [Tylenol] 650 mg PO Q4-6H PRN 08/21/22 08/21/22 History Ascorbic Acid [Vitamin C] 500 mg PO DAILY 08/21/22 08/21/22 History Atorvastatin [Lipitor] 20 mg PO DAILY 08/21/22 08/21/22 History Cetirizine HCl [Zyrtec] 10 mg PO DAILY 08/21/22 08/21/22 History Cider Vinegar [Apple Cider Vinegar] 600 mg PO DAILY 08/21/22 08/21/22 History Doxycycline [Vibramycin] 100 mg PO DAILY 08/21/22 08/21/22 History Nortriptyline [Pamelor] 25 mg PO BID 08/21/22 08/21/22 History Prochlorperazine [Compazine] 5 mg PO BID PRN 08/21/22 08/21/22 History Tamsulosin [Flomax] 0.4 mg PO DAILY 08/21/22 08/21/22 History Valsartan [Diovan] 80 mg PO DAILY 08/21/22 08/21/22 History Valsartan/Hydrochlorothiazide 1 each PO DAILY 08/21/22 08/21/22 History [Valsartan-Hctz 160-25 mg Tab] Zinc Gluconate [Zinc] 50 mg PO DAILY 08/21/22 08/21/22 History Allergies Allergy/AdvReac Type Severity Reaction Status Date / Time Sulfa (Sulfonamide Allergy Rash/Hives Verified 08/21/22 14:02 Antibiotics) Surgical - Exam - General well developed, well nourished, no distress - Eyes normal ocular movement, no icteric - ENT no hearing loss, no congestion - Neck no masses, trachea midline - Respiratory normal respiratory effort, clear to auscultation - Abdomen Abdomen: soft, non tender, no guarding, no rigid, no rebound - Integumentary no rash, no abnormal pigmentation - Neurologic no disoriented, no combative - Psychiatric oriented to time, oriented to person, oriented to place, speech is normal, memory intact Results - Imaging CT scan - abdomen: report reviewed CT scan - pelvis: report reviewed Assessment and Plan Assessment: Impression: bilateral renal stones Plan: bilateral ureterorenoscopy with laser lithotripsy and possible stent placement
[2022-08-22 13:37] LABS: Glucose,Whole Blood 98 mg/dL (70-110)
--- NOTE | 2022-08-22 13:40 | XR ---
EXAMINATION TYPE: XR KUB DATE OF EXAM: 08/22/2022 HISTORY: Pain Comparison: 04/17/2022 Single KUB is submitted for interpretation. Findings: Right renal calculi: Small renal calculi suggested bilaterally. Right ureteral calculi: None Visualized. Left renal calculi: Small renal calculi suggested bilaterally. Left ureteral calculi: None Visualized. Pelvic calcifications: Multiple pelvic calcifications may reflect phlebolith formation however dista l ureteral calculus is not excluded. Bowel gas pattern is unremarkable. No free air. No mass effects. IMPRESSION: 1. As above
--- NOTE | 2022-08-22 16:28 | P.OP ---
Date of Procedure: 08/22/22 Preoperative Diagnosis: Bilateral renal calculi Postoperative Diagnosis: Same Procedure(s) Performed: Cystoscopy with bilateral ureteral renoscopy and laser lithotripsy Anesthesia: HUNTER Surgeon: Billy Huddleston Estimated Blood Loss (ml): 0 Pathology: none sent Condition: stable Disposition: PACU Indications for Procedure: The patient is 57. She has kidney stone disease. She recently was at [facility] identifying bilateral renal stones on computed tomography scan. 7 mm on the left and 5 mm on the right. She's going to [place] in 2 weeks she wishes to remove the stones. There are not seen on KUB I will do ureteroscopy Description of Procedure: Patient brought to the operating suite. Given general anesthesia. Placed lithotomy position with a sterile prep and drape. cystoscopy a 21-Estonian sheath is normal. Ureteral orifices are normal. The left ureteral orifice is intubated with an 035 wire into the renal pelvis. Over the wires passed [id number] reentry sheath. The inner sheath is removed. I passed the flexible ureteroscope into the kidney and selectively go through each individual calyx. Lower pole calyx there is a collection of stones the largest being 7 mm. With the 275 laser probe I test the stones. There is no significant stone to basket this should pass with ease. The ureteroscope removed as is the sheath I reintroduced the cystoscope. I passed an 035 wire up the right ureteral orifice. Over the wires passed [id number] reentry sheath. The inner sheath and wire removed. I passed the flexible ureteroscope into the collecting system. I do not see a distinct stone. The anatomy is very delicate. An intraoperative nephrostogram was performed and I see a very difficult angulation to the lower pole calyx. I passed the scope into the lower pole calyx. 2 tones are seen in the minor calyx of. Once stone is easily destroyed with the laser fiber. The other stone is broken into tiny fragments the largest is about 2 mm it remains attached the papilla that due to the extreme angle I was unable to access. The procedure was terminated. The ureteroscope and sheath or remove the bladder strain the patient is awake and returned recovery room good condition Impression successful ureteral renoscopy bilaterally to remove stones. Patient will be discharged home upon recovery and found the office in one week
[2022-08-22 16:33] VITALS: RESP 16; TEMP 98.4
[2022-08-22 17:12] LABS: Glucose,Whole Blood 116 mg/dL (70-110)
[2022-08-22 18:51] VITALS: BP 143/82; PULSE 84
--- NOTE | 2022-08-23 08:05 | FL ---
EXAMINATION TYPE: FL guidance operating room DATE OF EXAM: 08/22/2022 HISTORY: Fluoroscopy time DAP: 11.938 of fluoroscopy provided. IMPRESSION: 1. Fluoroscopy time.
== END | disposition home or self-care (01) ==
LOC: OR 13:01
PROVIDERS: ATTEND Urology
DX: N20.0 Calculus of kidney (principal); E11.9 Type 2 diabetes mellitus without complications; K21.9 Gastro-esophageal reflux disease without esophagitis; I10 Essential (primary) hypertension; M19.90 Unspecified osteoarthritis, unspecified site; Z90.49 Acquired absence of other specified parts of digestive tract; Z98.51 Tubal ligation status; Z98.891 History of uterine scar from previous surgery; Z82.49 Family history of ischemic heart disease and other diseases of the circulatory system; Z79.899 Other long term (current) drug therapy
CPT/HCPCS: 52353; 74018; C1769; J2250; J1100; J0690; J2405; J3010; J1170 ×2; J1885; J2704; Q9967; J2001

== ENCOUNTER 2022-08-23 06:56 | Emergency (ER) | payer BC ==
[2022-08-23 07:06] VITALS: RESP 18; TEMP 98.6
[2022-08-23] MEDS ORDERED: SODIUM CHLORIDE 0.9% 1,000 ML IV STA (07:36)
[2022-08-23] MEDS ORDERED: KETOROLAC 15 MG/ML 1 ML VIAL IVP STA (07:36)
[2022-08-23] MEDS ORDERED: ONDANSETRON 4 MG/2 ML VIAL IVP STA ×2 (07:39→09:39)
[2022-08-23] MEDS ORDERED: MORPHINE SULFATE 4 MG/ML SYRINGE IVP PRN (07:41)
--- NOTE | 2022-08-23 07:41 | ED ---
General Adult HPI - General Chief complaint: Back Pain/Injury Stated complaint: Recheck Time Seen by Provider: 08/23/22 07:08 Source: patient Mode of arrival: ambulatory Limitations: no limitations - History of Present Illness Initial comments: Dictation was produced using [employer] dictation software. please excuse any grammatical, word or spelling errors. Chief Complaint: 57-year-old female presents emergency Department with right-si ded flank pain status post urologic procedure History of Present Illness: Is 57-year-old female yesterday she was taken to the operating room by Dr. Manish leahy over local urologist. She had a cystoscopy with bilateral ureteral renoscopy and Laser lithotripsy. Patient was told that most of the stones were removed except for 1 small one. Patient is able to go home and felt relatively well. That night she woke up started having waxing and waning pain on the right side. Patient was told that there was a residual stone that was not able to be removed during procedure. She states that she has significant colicky pain at the right flank radiating into his right groin. She has not really been passing any urine. She states that her urine is bloody. Denies any fever or constitutional symptoms. She does report nausea. The ROS documented in this emergency department record has been reviewed and confirmed by me. Those systems with pertinent positive or negative responses have been documented in the HPI. All other systems are other negative and/or noncontributory. PHYSICAL EXAM: General Impression: Alert and oriented x3, not in acute distress HEENT: Normocephalic atraumatic, extra-ocular movements intact, pupils equal and reactive to light bilaterally, mucous membranes moist. Cardiovascular: Heart regular rate and rhythm Chest: Able to complete full sentences, no retractions, no tachypnea Abdomen: abdomen soft, non-tender, non-distended, no organomegaly Musculoskeletal: Pulses present and equal in all extremities, no peripheral edema Motor: no focal deficits noted Neurological: CN II-XII grossly intact, no focal motor or sensory deficits noted Skin: Intact with no visualized rashes Psych: Normal affect and mood ED course: 57-year-old female presents to the emergency department with right flank pain. She is postop day 14 urologic procedure performed yesterday. Op erative note from yesterday was reviewed suggesting that there is a residual stone that was unable to be accessed. Vital signs upon arrival are within acceptable limits. Nursing notes and chart review was performed Laboratory evaluation obtained. CBC and metabolic panel within acceptable limits. Case was discussed in detail with Dr. Huddleston the urologist that performed the procedure yesterday. Did recommend CT without contrast to evaluate for possible kidney stone or postoperative complications. CT radiology report was reviewed. CT interpreted by myself did not show any signs of nephrolithiasis. There did appear to be bilateral ischial nephrosis without any obstructing renal calculi. Patient was evaluated at the bedside by urologist. Dr. Huddleston did feel that patient's symptoms postoperative pain. No, patient is noted. Patient be discharged and advised to follow up outpatient. Was pt. sent in by a medical professional or institution (, PA, SUPERVIS[employer], urgent care, hospital, or residential...) When possible be specific @ -No Did you speak to anyone other than the patient for history (EMS, parent, family, police, friend...)? What history was obtained from this source @ -No Did you review nursing and triage notes (agree or disagree)? Why? @ -I reviewed and agree with nursing and triage notes Were old charts reviewed (outside hosp., previous admission, EMS record, old EKG, old radiological studies, urgent care reports/EKG's, residential records)? Report findings @ -Yesterday's operative note was reviewed Differential Diagnosis (chest pain, altered mental status, abdominal pain women, abdominal pain men, vaginal bleeding, musculoskeletal, weakness, fever, dyspnea, syncope, headache, dizziness, GI bleed, back pain, seizure, CVA, palpatations, mental health)? @ -Differential Abdominal Pain Women: Appendicitis, Cholecystitis, diverticulosis, ischemic bowel, pancreatitis, he patitis, UTI, gastroenteritis, AAA, incarcerated hernia, bowel obstruction, constipation, inflammatory bowel, hepatitis, peptic ulcer disease, splenic infarction, perforated viscus, vulvitis, ovarian torsion, PID, kidney stone, placenta abruption, this is not meant to be an all-inclusive list EKG interpreted by me (3pts min.). @ -None done X-rays interpreted by me (1pt min.). @ -None done CT interpreted by me (1pt min.). @ -See above U/S interpreted by me (1pt. min.). @ -None done What testing was considered but not performed or refused? (CT, X-rays, U/S, labs)? Why? @ -None What meds were considered but not given or refused? Why? @ -None Did you discuss the management of the patient with other professionals (professionals i.e. , PA, [employer], lab, RT, psych nurse, social worker delinquency prevention, production line, teacher, special police officer, child support case officer)? Give summary @ -No Was smoking cessation discussed for >3mins.? @ -No Was critical care preformed (if so, how long)? @ -No Were there social determinants of health that impacted care today? How? (Homeles sness, low income, unemployed, alcoholism, drug addiction, transportation, low edu. Level, literacy, decrease access to med. care, chcf, rehab)? @ -No Was there de-escalation of care discussed even if they declined (Discuss DNR or withdrawal of care, Hospice)? DNR status @ -No What co-morbidities impacted this encounter? (DM, HTN, Smoking, COPD, CAD, Cancer, CVA, ARF, Chemo, Hep., AIDS, mental health diagnosis, sleep apnea, morbid obesity)? @ -None Was patient admitted / discharged? Hospital course, mention meds given and route, prescriptions, significant lab abnormalities, going to OR and other pertinent info. @ -See above Undiagnosed new problem with uncertain prognosis? @ -No Drug Therapy requiring intensive monitoring for toxicity (Heparin, Nitro, Insulin, Cardizem)? @ -No Were any procedures done? @ -No Diagnosis/symptom? Acute, or Chronic, or Acute on Chronic? Uncomplicated (without systemic symptoms) or Complicated (systemic symptoms)? @ -1. Acute postoperative pain Side effects of treatment? @ -No Exacerbation, Progression, or Severe Exacerbation? @ -No Poses a threat to life or bodily function? How? (Chest pain, [place], CA, pneumonia, PE, COPD, DKA, ARF, appy, cholecystitis, CVA, Diverticulitis, Homicidal, Suicidal, threat to staff... and all critical care pts) @ -No - Related Data Home Medications Medication Instructions Recorded Confirmed Acetaminophen [Tylenol] 650 mg PO Q4-6H PRN 08/21/22 08/23/22 Ascorbic Acid [Vitamin C] 500 mg PO DAILY 08/21/22 08/23/22 Atorvastatin [Lipitor] 20 mg PO DAILY 08/21/22 08/23/22 Cetirizine HCl [Zyrtec] 10 mg PO DAILY 08/21/22 08/23/22 Cider Vinegar [Apple Cider Vinegar] 600 mg PO DAILY 08/21/22 08/23/22 Doxycycline [Vibramycin] 100 mg PO DAILY 08/21/22 08/23/22 Nortriptyline [Pamelor] 25 mg PO BID 08/21/22 08/23/22 Prochlorperazine [Compazine] 5 mg PO BID PRN 08/21/22 08/23/22 Tamsulosin [Flomax] 0.4 mg PO DAILY 08/21/22 08/23/22 Valsartan [Diovan] 80 mg PO DAILY@1600 08/21/22 08/23/22 Valsartan/Hydrochlorothiazide 1 tab PO DAILY 08/21/22 08/23/22 [Valsartan-Hctz 160-25 mg Tab] Zinc Gluconate [Zinc] 50 mg PO DAILY 08/21/22 08/23/22 Previous Rx's Medication Instructions Recorded Ciprofloxacin HCl [Cipro] 500 mg PO Q12HR 1 Days #10 tab 08/22/22 HYDROcodone/APAP 5-325MG [[place] 1 tab PO Q6HR PRN 3 Days #12 tab 08/23/22 5-325] Ondansetron Odt [Zofran Odt] 4 mg PO Q8HR PRN #12 tab 08/23/22 Allergies Allergy/AdvReac Type Severity Reaction Status Date / Time Sulfa (Sulfonamide Allergy Rash/Hives Verified 08/23/22 09:11 Antibiotics) Review of Systems ROS Statement: Those systems with pertinent positive or pertinent negative responses have been documented in the HPI. ROS Other: All systems not noted in ROS Statement are negative. Past Medical History Past Medical History: Diabetes Mellitus, GERD/Reflux, Hypertension Additional Past Medical History / Comment(s): kidney stones, abd. pain along ribs since jun. "prediabetic" diet controlled History of Any Multi-Drug Resistant Organisms: None Reported Past Surgical History: Back Surgery, Section, Cholecystectomy, Tubal Ligation, Uterine Ablation Past Anesthesia/Blood Transfusion Reactions: Family History of Problems w/ Anesthesia, Postoperative Nausea & Vomiting (PONV) Additional Past Anesthesia/Blood Transfusion Reaction / Comment(s): "dad bottoms out with his blood pressure while he is under anesthesetic" Past Psychological History: No Psychological Hx Reported Smoking Status: Never smoker Past Alcohol Use History: Occasional Past Drug Use History: None Reported - Past Family History Father Family Medical History: Dementia, Hypertension General Exam Limitations: no limitations Course Vital Signs 08/23/22 07:02 Temperature 98.6 F Pulse Rate 89 Respiratory 18 Rate Blood Pressure 154/82 O2 Sat by Pulse 98 Oximetry Medical Decision Making - Lab Data Result diagrams: 08/23/22 07:48 08/23/22 07:48 Lab Results 08/23/22 08/23/22 Range/Units 07:48 07:48 WBC 13.0 H (3.8-10.6) k/uL RBC 4.31 (3.80-5.40) m/uL Hgb 13.2 (11.4-16.0) gm/dL Hct 36.8 (34.0-46.0) % MCV 85.2 (80.0-100.0) fL MCH 30.7 (25.0-35.0) pg MCHC 36.0 (31.0-37.0) g/dL RDW 12.9 (11.5-15.5) % Plt Count 219 (150-450) k/uL MPV 7.1 Neutrophils % 87 % Lymphocytes % 6 % Monocytes % 5 % Eosinophils % 0 % Basophils % 0 % Neutrophils # 11.3 H (1.3-7.7) k/uL Lymphocytes # 0.8 L (1.0-4.8) k/uL Monocytes # 0.7 (0-1.0) k/uL Eosinophils # 0.0 (0-0.7) k/uL Basophils # 0.0 (0-0.2) k/uL Sodium 140 (137-145) mmol/L Potassium 3.3 L (3.5-5.1) mmol/L Chloride 100 (98-107) mmol/L Carbon Dioxide 29 (22-30) mmol/L Anion Gap 11 mmol/L BUN 26 H (7-17) mg/dL Creatinine 1.89 H (0.52-1.04) mg/dL Est GFR (CKD-EPI)AfAm 34 (>60 ml/min/1.73 sqM) Est GFR (CKD-EPI)NonAf 29 (>60 ml/min/1.73 sqM) Glucose 140 H (74-99) mg/dL Calcium 9.2 (8.4-10.2) mg/dL Disposition Clinical Impression: Post-operative pain Disposition: HOME SELF-CARE Condition: Good Instructions (If sedation given, give patient instructions): Hydrocodone/Acetaminophen (By mouth) Prescriptions: HYDROcodone/APAP 5-325MG [[place] 5-325] 1 tab PO Q6HR PRN 3 Days #12 tab PRN Reason: Severe Pain Ondansetron Odt [Zofran Odt] 4 mg PO Q8HR PRN #12 tab PRN Reason: Nausea Is patient prescribed a controlled substance at d/c from ED?: Yes If prescribed controlled substance>3 days was MAPS reviewed?: Prescribed <3 Days Referrals: Billy Huddleston MD [STAFF PHYSICIAN] - 1-2 days Time of Disposition: 10:22
[2022-08-23 08:18] LABS: Basophils % (A) 0 %; Eosinophils % (A) 0 %; HCT 36.8 % (34.0-46.0); HGB 13.2 gm/dL (11.4-16.0); Lymphocytes # (A) 0.8 k/uL (1.0-4.8); Lymphocytes % (A) 6 %; MCH 30.7 pg (25.0-35.0); MCV 85.2 fL (80.0-100.0); Mean Platelet Volume 7.1; Monocytes # (A) 0.7 k/uL (0-1.0); Monocytes % (A) 5 %; Neutrophils # (A) 11.3 k/uL (1.3-7.7); Neutrophils % (A) 87 %; Platelet Count 219 k/uL (150-450); RBC 4.31 m/uL (3.80-5.40); RDW 12.9 % (11.5-15.5)
[2022-08-23 08:24] LABS: Calcium 9.2 mg/dL (8.4-10.2); Potassium 3.3 mmol/L (3.5-5.1)
[2022-08-23] MEDS ORDERED: MORPHINE SULFATE 4 MG/ML SYRINGE IV STA (09:16)
--- NOTE | 2022-08-23 09:18 | CT ---
EXAMINATION TYPE: CT abdomen pelvis wo con CT DLP: 480.8 mGycm, Automated exposure control for dose reduction was used. DATE OF EXAM: 08/23/2022 9:06 AM COMPARISON: CT abdomen pelvis most recent from 08/12/2019 CLINICAL INDICATION:Female, 57 years old with history of nephrolithiasis; TECHNIQUE: Axial CT of the abdomen and pelvis. Sagittal and coronal reformats were created on a [employer] workstation. Contrast used: None Oral contrast used: without Oral Contrast FINDINGS: LOWER CHEST: Unremarkable ABDOMEN LIVER: Unremarkable GALLBLADDER AND BILE DUCTS: Gallbladder surgically absent. PANCREAS: Unremarkable. SPLEEN: Unremarkable. ADRENAL GLANDS: Left adrenal lesion measuring 9 Hounsfield units and 8 mm likely representing benign lipid rich adrenal adenoma. KIDNEYS AND URETERS: Bilateral mild hydroureteronephrosis. No obstructing calculus visualized. There is nonobstructing renal calculi on the right measuring up to 3 mm and 3 mm on the left.. PELVIS BLADDER: Bladder is nondistended REPRODUCTIVE: Unremarkable. ABDOMEN & PELVIS STOMACH AND BOWEL: No evidence of bowel obstruction. Appendix is normal. PERITONEUM/RETROPERITONEUM: No evidence of pneumoperitoneum or free fluid. VASCULATURE: No evidence of aortic aneurysm. MUSCULOSKELETAL: No acute osseous abnormalities LYMPH NODES: No gross evidence for lymphadenopathy. SOFT TISSUE/ABDOMINAL WALL: Unremarkable IMPRESSION: 1. Bilateral hydroureteronephrosis which is mild. No obstructing calculus visualized. Etiology felt to be related to possibly the ureters entry into the bladder. Consider further evaluation with direct visualization. Findings are new from 2019. 2. Nonobstructing bilateral renal calculi.
[2022-08-23 10:29] VITALS: BP 148/78; PULSE 84
== END 2022-08-23 10:30 | disposition home or self-care (01) ==
LOC: EC 06:56
DX: G89.18 Other acute postprocedural pain (principal); E11.9 Type 2 diabetes mellitus without complications; I10 Essential (primary) hypertension; Z88.2 Allergy status to sulfonamides; Z79.899 Other long term (current) drug therapy
CPT/HCPCS: 36415; 80048; 85025; 74176; 99284; 96374; 96375; 96376 ×2; 96361; J2270; J2405

== ENCOUNTER → 2022-08-29 | Outpatient (CLI) | payer BC ==
--- NOTE | 2022-08-29 09:24 | XR ---
EXAMINATION TYPE: XR KUB DATE OF EXAM: 08/29/2022 COMPARISON: NONE HISTORY: Stone removal TECHNIQUE: One view abdominal series FINDINGS: The osseous structures are intact. The bowel gas pattern is nonspecific. Surgical clips right upper quadrant. Punctate calcification lower pole right kidney. Calcifications pelvis likely vascular. IMPRESSION: 1. Nonspecific abdomen. Punctate lower pole right renal calculus.
== END | disposition home or self-care (01) ==
LOC: RADXRMAIN 08:35
PROVIDERS: ATTEND Urology
DX: N20.0 Calculus of kidney (principal)
CPT/HCPCS: 74018

== ENCOUNTER → 2022-12-13 | Outpatient (CLI) | payer BC ==
--- NOTE | 2022-12-14 08:34 | MM ---
Reason for Exam: Screening (asymptomatic). Last mammogram was performed 1 year(s) and 1 month(s) ago. Patient History: Menarche at age 14. First Full-Term at age 28. Postmenopausal. 08/02/2010, Benign Core Biopsy on the left side. Risk Values: Lizzie 5 year model risk: 1.6%. NCI Lifetime model risk: 10.4%. Prior Study Comparison: 09/12/2018 Bilateral Screening Mammogram, [facility]. 02/18/2020 Bilateral Screening Mammogram, [facility]. 11/09/2021 Bilateral MG screening mammo w CAD, [facility]. Tissue Density: The breast tissue is heterogeneously dense. This may lower the sensitivity of mammography. Findings: Analyzed By CAD. There is no suspicious group of microcalcifications or new suspicious mass in either breast. Overall Assessment: Benign, BI-RAD 2 Management: Screening Mammogram of both breasts in 1 year. . Patient should continue monthly self-breast exams. A clinical breast exam by your physician is recommended on an annual basis. This exam should not preclude additional follow-up of suspicious palpable abnormalities. Note on Lizzie scores and lifetime risk: 1. A Lizzie score greater than 3% is considered moderate risk. If this is the case, consider specialist referral to assess eligibility for a risk reducing agent. 2. If overall lifetime risk for the development of breast cancer is 20% or higher, the patient may qualify for future screening with alternating mammogram and breast MRI. Electronically signed and approved by: Vincent Bell M.D. Radiologis
== END | disposition home or self-care (01) ==
LOC: RADMAMWWP 09:50
PROVIDERS: ATTEND Family Medicine
DX: Z12.31 Encounter for screening mammogram for malignant neoplasm of breast (principal); Z78.0 Asymptomatic menopausal state
CPT/HCPCS: 77063; 77067

== ENCOUNTER → 2023-10-05 | Outpatient (CLI) | payer BC ==
--- NOTE | 2023-10-05 12:31 | CA ---
Exercise Stress Test Report Name: Glory Thapa Exam Date: 10/05/2023 10:08 Exam Location: [place] Stress Ht (in): 68 Wt (lb): 160 BSA: 1.86 Ordering Phys: Jose Francisco Olivares DO Referring Phys: Latoya Teran Technologist: Charley Torres RDCS Age: 58 Gender: F : 1965 Procedure CPT: Indications: R00.2 palpitations ICD-10 Codes: Patient History: CASTILLO, PALP, HTN, DM, CHOL, FAMILY HX Medications: SPIRONOLACTOVE, NORTRIPTYLINE, ATORVASTATIN Meds past 24 hrs: Pretest Chest Pain: STRESS TEST [place] Protocol Exercise Duration (min:sec): 09:[address] Depressions (mm): Angina Score: Elise Score: Resting HR (bpm): 80 Peak HR (bpm): 141 Resting BP (mmHg): 124 / 98 Peak BP (mmHg): 250 / 68 MPHR: 163 Target HR: 139 % MPHR: 87 METS: 10.3 Total Dose: Peak Dose: Atropine: Double Product: 28849 BP Response: Stress Termination: Reached target heart rate Stress Symptoms: No chest pain or symptoms Stress Summary: ECG ANALYSIS Resting ECG: Stress ECG: CONCLUSIONS Good exercise tolerance Normal electrocardiogram stress testing Dr. Stef Zuniga MD (Electronically Signed) Final Date: 05 Oct 2023 12:31
--- NOTE | 2023-10-05 12:41 | CA ---
Transthoracic Echo Report Name: Glory Thapa Age: 58 Gender: F : 1965 Exam Date: 10/05/2023 10:26 Exam Location: [place] Echo Ht (in): 68 Wt (lb): 160 Ordering Physician: Jose Francisco Olivares DO Attending/Referring Phys: Latoya Teran [facility] Collar Runner Za Bucio RDCS Procedure CPT: Indications: R00.2 palpitations Cardiac Hx: Technical Quality: Good Contrast 1: Total Dose (mL): Contrast 2: Total Dose (mL): MEASUREMENTS (Male / Female) Normal Values 2D ECHO LV Diastolic Diameter PLAX 3.3 cm 4.2 - 5.9 / 3.9 - 5.3 cm LV Systolic Diameter PLAX 2.2 cm IVS Diastolic Thickness 1.4 cm 0.6 - 1.0 / 0.6 - 0.9 cm LVPW Diastolic Thickness 1.3 cm 0.6 - 1.0 / 0.6 - 0.9 cm LV Relative Wall Thickness 0.8 RV Internal Dim ED PLAX 3.0 cm LA Systolic Diameter LX 2.9 cm 3.0 - 4.0 / 2.7 - 3.8 cm LV Diastolic Volume MOD 4C 66.7 cm??? LV Systolic Volume MOD 4C 29.4 cm??? LV Ejection Fraction MOD 4C 56.0 % LV Cardiac Index MOD 4C 1792.7 cm???/min???m??? LV Diastolic Length 4C 8.0 cm LV Systolic Length 4C 6.5 cm LV Diastolic Volume MOD 2C 52.6 cm??? LV Systolic Volume MOD 2C 17.9 cm??? LV Ejection Fraction MOD 2C 66.1 % LV Cardiac Index MOD 2C 1669.3 cm???/min???m??? LV Diastolic Length 2C 7.7 cm LV Systolic Length 2C 6.3 cm LA Volume 19.4 cm??? 18 - 58 / 22 - 52 cm??? LA Volume Index 10.3 cm???/m??? 16 - 28 cm???/m??? M-MODE Aortic Root Diameter MM 2.8 cm AV Cusp Separation MM 2.0 cm DOPPLER AV Peak Velocity 105.1 cm/s AV Peak Gradient 4.4 mmHg MV Area PHT 3.6 cm??? Mitral E Point Velocity 75.6 cm/s Mitral A Point Velocity 82.0 cm/s Mitral E to A Ratio 0.9 MV Deceleration Time 211.0 ms TR Peak Velocity 194.0 cm/s TR Peak Gradient 15.0 mmHg Right Ventricular Systolic Press 20.0 mmHg FINDINGS Left Ventricle Left ventricular ejection fraction is estimated at 60-65 %. Small left ventricular cavity. Moderately increased septal wall thickness. Mildly increased posterior wall thickness. Normal left ventricular wall motion. Right Ventricle Normal right ventricular size and function. Right ventricular systolic pressure within normal limits. Right Atrium Normal right atrial size. No right atrial thrombus or mass seen. Left Atrium Normal left atrial size. No left atrial thrombus or mass present. Mitral Valve Structurally normal mitral valve. No mitral stenosis, regurgitation or prolapse. Aortic Valve Trileaflet aortic valve. No aortic valve stenosis or regurgitation. Tricuspid Valve Structurally normal tricuspid valve. Trace to mild tricuspid regurgitation. Pulmonic Valve Structurally normal pulmonic valve. No pulmonic regurgitation. Pericardium No pericardial effusion. No pleural effusion. Aorta Normal size aortic root and proximal ascending aorta. CONCLUSIONS Normal LV systolic function Previewed by: Dr. Stef Zuniga MD (Electronically Signed) Final Date: 05 Oct 2023 12:40
== END | disposition home or self-care (01) ==
LOC: RADNMMAIN 09:47
PROVIDERS: ATTEND Family Medicine
DX: R00.2 Palpitations (principal); I10 Essential (primary) hypertension; E11.9 Type 2 diabetes mellitus without complications; E78.00 Pure hypercholesterolemia, unspecified
CPT/HCPCS: 93017; 93306

== ENCOUNTER → 2023-11-06 | Outpatient (CLI) | payer BC ==
[2023-11-06 15:14] LABS: BUN/Creat Ratio 27.91 Ratio (12.00-20.00); Blood Urea Nitrogen 30.7 mg/dL (9.0-27.0); Glucose 116 mg/dL (70-110)
[2023-11-06 15:15] LABS: Albumin 4.8 g/dL (3.8-4.9); Calcium 9.8 mg/dL (8.7-10.3); Carbon Dioxide 23.3 mmol/L (21.6-31.8); Chloride 103 mmol/L (96-109); Potassium 4.9 mmol/L (3.5-5.5); Sodium 140 mmol/L (135-145)
[2023-11-06 16:46] LABS: Appearance,Urine Clear (Clear); Bilirubin,Urine Negative (Negative); Blood,Urine Trace (Negative); Color,Urine Yellow (Yellow); Ketones,Urine Negative (Negative); Nitrite,Urine Negative (Negative); PH, Urine 5.5; Specific Gravity,Urine 1.018 (1.001-1.030); Urobilinogen,Urine 0.2 E.U./DL
[2023-11-06 17:03] LABS: Bacteria,Urine None Seen (None Seen); Calcium Oxalate Crystals,Urine Present (None Seen)
== END | disposition home or self-care (01) ==
LOC: LABWHC1 07:39
PROVIDERS: ATTEND Nurse Practitioner Family
DX: I10 Essential (primary) hypertension (principal); N39.0 Urinary tract infection, site not specified; R80.9 Proteinuria, unspecified
CPT/HCPCS: 36415; 80048; 81001; 82040; 82043; 82570

== ENCOUNTER → 2024-03-25 | Outpatient (CLI) | payer BC ==
--- NOTE | 2024-03-26 10:54 | MM ---
Reason for Exam: Screening (asymptomatic). Last mammogram was performed 1 year(s) and 3 month(s) ago. Patient History: Menarche at age 14. First Full-Term at age 28. Postmenopausal. 08/02/2010, Benign Core Biopsy on the left side. Risk Values: Lizzie 5 year model risk: 1.7%. NCI Lifetime model risk: 10.2%. Prior Study Comparison: 02/18/2020 Bilateral Screening Mammogram, [facility]. 11/09/2021 Bilateral MG screening mammo w CAD, [facility]. 12/13/2022 Bilateral MG 3D screening mammo w/cad, [facility]. Tissue Density: There are scattered areas of fibroglandular density. Findings: Analyzed By CAD. Left breast biopsy clip. Right breast: There is no suspicious group of microcalcifications or new suspicious mass. Left breast: There is no suspicious group of microcalcifications or new suspicious mass. Overall Assessment: Benign, BI-RAD 2 Management: Screening Mammogram of both breasts in [address] [facility] will attempt to contact patient to return for supplemental views and ultrasound if indicated. Patient should continue monthly self-breast exams. A clinical breast exam by your physician is recommended on an annual basis. This exam should not preclude additional follow-up of suspicious palpable abnormalities. Note on Lizzie scores and lifetime risk: 1. A Lizzie score greater than 3% is considered moderate risk. If this is the case, consider specialist referral to assess eligibility for a risk reducing agent. 2. If overall lifetime risk for the development of breast cancer is 20% or higher, the patient may qualify for future screening with alternating mammogram and breast MRI. [facility], , 03/26/2024 10:50 AM. Electronically signed and approved by: Fan Guzmán DO
== END | disposition home or self-care (01) ==
LOC: RADMAMWWP 12:52
PROVIDERS: ATTEND Family Medicine
CPT/HCPCS: 77063; 77067

== ENCOUNTER → 2024-05-03 | Outpatient (CLI) | payer BC ==
[2024-05-04] LABS: Appearance,Urine Clear (Clear); Bilirubin,Urine Negative (Negative); Blood,Urine Trace (Negative); Color,Urine Yellow (Yellow); Ketones,Urine Negative (Negative); Nitrite,Urine Negative (Negative); Specific Gravity,Urine 1.024 (1.001-1.030); Urobilinogen,Urine 0.2 E.U./DL
[2024-05-04 00:17] LABS: Bacteria,Urine None Seen (None Seen); Calcium Oxalate Crystals,Urine Present (None Seen)
[2024-05-04 07:26] LABS: HCT 46.4 % (37.2-46.3); HGB 15.4 g/dL (12.0-15.0); MCH 30.2 pg (27.0-32.0); MCHC 33.2 g/dL (32.0-37.0); Mean Platelet Volume 9.9 FL (9.5-12.2); NRBC Per 100 WBC 0 X 10*3/uL (0.00-0.01); Platelet Count 277 X 10*3/uL (140-440); RDW 12.1 % (11.5-14.5); WBC 4.85 X 10*3/uL (4.50-10.00)
[2024-05-04 11:19] LABS: Iron 88 UG/DL (50-170); Magnesium 2.1 mg/dL (1.5-2.4); Phosphorus 3.7 mg/dL (2.4-5.1); Total Iron Binding Capacity 386 UG/DL (228-460)
[2024-05-04 11:55] LABS: Albumin 4.5 g/dL (3.8-4.9); BUN/Creat Ratio 16.75 Ratio (12.00-20.00); Blood Urea Nitrogen 20.1 mg/dL (9.0-27.0); Calcium 9.8 mg/dL (8.7-10.3); Carbon Dioxide 24.1 mmol/L (21.6-31.8); Chloride 104 mmol/L (96-109); Glucose 94 mg/dL (70-110); Potassium 5.2 mmol/L (3.5-5.5); Sodium 141 mmol/L (135-145)
== END | disposition home or self-care (01) ==
LOC: LABWHC1 10:15
PROVIDERS: ATTEND Internal Medicine Nephrology
DX: I10 Essential (primary) hypertension (principal); N39.0 Urinary tract infection, site not specified; D64.9 Anemia, unspecified; E55.9 Vitamin D deficiency, unspecified; N25.81 Secondary hyperparathyroidism of renal origin
CPT/HCPCS: 36415; 80048; 81001; 82040; 82043; 82306; 82570; 82728; 83540; 83550; 83735; 83970; 84100; 85027

== ENCOUNTER 2024-05-23 07:09 | Day surgery (SDC) | payer BC ==
[2024-05-23] MEDS: IV FLUID CONTINUATION 1,000 ML IV ONE ×2 (07:50→08:28)
[2024-05-23 07:53] VITALS: RESP 18; TEMP 97.6
[2024-05-23] MEDS: LACTATED RINGERS 1,000 ML IV SCH (07:54)
[2024-05-23 08:08] LABS: Glucose,Whole Blood 97 mg/dL (70-110)
[2024-05-23] MEDS ORDERED: LIDOCAINE 1% INJ 10MG/ML (20 ML MDV) ONE (08:29)
[2024-05-23] MEDS ORDERED: PROPOFOL 10 MG/ML 20 ML VIAL IV ONE (08:29)
--- NOTE | 2024-05-23 08:52 | P.PCN ---
Date of Procedure: 05/23/24 Procedure(s) Performed: BRIEF HISTORY: Patient is a 58-year-old pleasant female scheduled for an elective colonoscopy as a part of screening for colon cancer. PROCEDURE PERFORMED: Colonoscopy with biopsy. PREOPERATIVE DIAGNOSIS: Screening for colon cancer/. IV sedation per Anesthesia. PROCEDURE: After informed consent was obtained, the patient, was brought into the endoscopy unit. IV sedation was administered by Anesthesia under continuous monitoring. Digital rectal examination was normal. Initially the Olympus CF-160 flexible video colonoscope was then inserted in the rectum, gradually advanced into the cecum without any difficulty. Careful examination was performed as the scope was gradually being withdrawn. Ileocecal valve and the appendiceal orifice were visualized and appeared normal. Prep was excellent. Mucosa of the cecum, normal. Ascending colon there was a 5 mm flat polyp that was removed by cold biopsy. Rest of the ascending colon, transverse colon, descending colon, sigmoid colon, and rectum appeared normal. Retroflexion was performed in the rectum and no lesions were seen. The patient tolerated the procedure well. IMPRESSION: 5 mm flat ascending colon polyp status post removal by cold biopsy Rest of the colon appeared normal RECOMMENDATIONS: Findings of this examination were discussed with the patient well as her family. She was advised to follow-up with the biopsy results. If the biopsy reveals adenoma she can have repeat colonoscopy in 5 years.
[2024-05-23 09:15] VITALS: BP 128/81; PULSE 76
== END 2024-05-23 09:46 ==
LOC: ORWHC2ENDO 07:09
PROVIDERS: ATTEND Internal Medicine Gastroenterology
DX: Z12.11 Encounter for screening for malignant neoplasm of colon (principal); K63.5 Polyp of colon; I10 Essential (primary) hypertension; E11.9 Type 2 diabetes mellitus without complications; N28.9 Disorder of kidney and ureter, unspecified; Z90.89 Acquired absence of other organs; Z88.2 Allergy status to sulfonamides; Z79.02 Long term (current) use of antithrombotics/antiplatelets; Z79.899 Other long term (current) drug therapy
CPT/HCPCS: 88305; 45380; J2003; J2704

== ENCOUNTER → 2024-08-28 | Outpatient (CLI) | payer BC ==
--- NOTE | 2024-08-28 15:36 | US ---
EXAMINATION TYPE: US kidneys/renal and bladder DATE OF EXAM: 08/28/2024 COMPARISON: NONE CLINICAL INDICATION: Female, 59 years old with history of R39.14 Urgency of urination; Urgency when s tanding, patient denies any other signs or symptoms TECHNIQUE: Grayscale imaging of the bilateral kidneys and urinary bladder: FINDINGS: EXAM MEASUREMENTS: Right Kidney: 9.8 x 4.2 x 3.7 cm Left Kidney: 9.8 x 5.4 x 4.4 cm Right Kidney: wnl, no evidence for hydronephrosis, mass or renal calculus. Extrarenal pelvis noted. Left Kidney: wnl, no evidence for hydronephrosis, mass or renal calculus. Bladder: wnl Bilateral Jets seen: Yes Normal Post Void Residual: Yes. Post Void Residual Volume: 10 mL IMPRESSION: 1. No hydronephrosis. 2. Increased postvoid bladder volume of 10 mL falls within acceptable limits. [facility], , 08/28/2024 3:34 PM
== END | disposition home or self-care (01) ==
LOC: RADUSWWP 14:33
PROVIDERS: ATTEND Family Medicine
DX: R39.14 Feeling of incomplete bladder emptying (principal); N32.89 Other specified disorders of bladder
CPT/HCPCS: 76770

== ENCOUNTER → 2024-12-01 | Outpatient (CLI) | payer BC ==
[2024-12-01 18:38] LABS: African American GFR (CKD) 80 (>60 ml/min/1.73 sqM); Blood Urea Nitrogen 28 mg/dL (7-17); Non-African American GFR(CKD) 70 (>60 ml/min/1.73 sqM)
--- NOTE | 2024-12-01 19:54 | CT ---
EXAMINATION TYPE: CT angio chest DATE OF EXAM: 12/01/2024 7:24 PM COMPARISON: None CLINICAL INDICATION: Female, 59 years old with history of R07.89 OTHER CHEST PAIN; SOB with exertion TECHNIQUE/CONTRAST: CTA scan of the thorax is performed with IV Contrast, patient injected with 77cc mL of Isovue 370, [place] P images are created and reviewed these are created on a separate workstation.. CT DLP: 223.9 mGycm, Automated exposure control for dose reduction was used. FINDINGS: Lungs/Pleura: No evidence of focal consolidation, pleural effusion or pneumothorax. Airway: Large airways are patent. Heart: Size within normal limits. No significant coronary artery calcifications. Vasculature: There is no evidence for a filling defect within the pulmonary vasculature to suggest ac [place]ell pulmonary embolism. The pulmonary artery is of normal size. Mediastinum: No gross evidence of adenopathy. Musculoskeletal: No acute osseous abnormalities Soft Tissues/lymph nodes: Unremarkable. Lower neck: No significant findings. Upper Abdomen: The gallbladder surgically absent. IMPRESSION: 1. No evidence of pulmonary embolism. 2. No evidence for acute process. [facility], , 12/01/2024 7:52 PM
== END | disposition home or self-care (01) ==
LOC: RADCTMAIN 17:31
PROVIDERS: ATTEND Physician Assistant
DX: R07.89 Other chest pain (principal)
CPT/HCPCS: 82565; 84520; 71275; 36415; Q9967